=== PATIENT | female | born 1975 | race American Indian/Alaskan Native ===

== ENCOUNTER 2017-05-14 19:45 | Emergency (ER) | payer OTHER ==
[~2017-05-14] VITALS: Ht 165.1 cm; Wt 111.1 kg
[~2017-05-14 19:45] MED LIST: CRUTCH1 EACH; MINOCYCLINE HC100 M1 PO; NORCO 5-325 TA1 EACH PO; OMEPRAZOLE20 MG PO; PREDNISONE1 MG; TRIAMCINOLONE A15 GM TOP; ZANTAC150 MG PO
[2017-05-14] MEDS ORDERED: IBUPROFEN800 MG PO (20:05)
[2017-05-14] MEDS ORDERED: ACETAMINOPHEN500 MG PO (20:05)
[2017-05-14] MEDS ORDERED: NORCO 5-325 TA1 EACH PO (22:39)
== END 2017-05-14 22:45 | disposition home or self-care (01) ==
LOC: ED 19:45
DX: N64.4 Mastodynia (principal); Z98.51 Tubal ligation status; Z88.0 Allergy status to penicillin; Z88.6 Allergy status to analgesic agent; Z88.1 Allergy status to other antibiotic agents; Z88.8 Allergy status to other drugs, medicaments and biological substances
CPT/HCPCS: 99283

== ENCOUNTER 2020-01-14 13:23 | Emergency (ER) | payer OTHER ==
[~2020-01-14] VITALS: Ht 165.1 cm; Wt 111.1 kg
--- OUTSIDE RECORDS SUMMARY | ~2020-01-14 | XMS | Encounter Summary ---
Demographics + + + | Address | [address] | | | [place] [address] | + + + | Home Phone | | + + + | Preferred Language | Unknown | + + + | Marital Status | Unknown | + + + | Zoroastrianism Affiliation | Unknown | + + + | Race | Unknown | + + + | Ethnic Group | Unknown | + + + Author + + + | Author | [facility] | | | and Pipeana | + + + | Organization | [facility] | | | and [place] | + + + | Address | Unknown | + + + | Phone | Unavailable | + + + Support + + + + + | Name | Relationship | Address | Phone | + + + + + | Rigoberto Tuttle | ECON | [address] | | | | | [place] | | | | | [address] | | + + + + + Care Team Providers + +------+ + | Care [facility] Agent Name | Role | Phone | + +------+ + | Cristopher Jerez PA-C | PCP | | + +------+ + Encounter Details +--------+ + + + + | Date | Type | Department | Care Team | Description | +--------+ + + + + | 05/17/ | Hospital | [facility] | Conversion | Mass of left breast | | 2017 | Encounter | IMAGING SERVICES | Transaction, | | | | | [address] | Provider Unknown | | | | | [address] [place], [place] | | | | | | [address] | (Fax) | | | | | [phone] | | | +--------+ + + + + Social History + +-------+ +--------+------+ | Tobacco Use | Types | Packs/Day | Years | Date | | | | | Used | | + +-------+ +--------+------+ | Never Assessed | | | | | + +-------+ +--------+------+ + + + | Sex Assigned at | Date Recorded | | | | + + + | Not on file | | + + + + + + + | Job Start Date | Occupation | Industry | + + + + | Not on file | Not on file | Not on file | + + + + + + + + | Travel History | Travel Start | Travel End | + + + + + + | No recent travel history available. | + + documented as of this encounter Plan of Treatment Not on filedocumented as of this encounter Procedures + +--------+ + + + | Procedure Name | Priori | Date/Time | Associated Diagnosis | Comments | | | ty | | | | + +--------+ + + + | US BREAST LIMITED | Routin | 05/17/2017 | | Results for this | | LEFT | e | 3:50 PM | | procedure are in the | | | | PDT | | results section. | + +--------+ + + + documented in this encounter Results US Breast Limited Left (05/17/2017 3:50 PM PDT) + + | Specimen | + + | | + + + + + | Impressions | Performed At | + + + | 1. Nonvisualization of the retroareolar mass of the left breast, | | | as described above. Ultrasound-guided biopsy was not performed. | | | Six-month follow-up ultrasound would be recommended. BI-RADS 3, | | | probably benign findings. | | + + + + + + | Narrative | Performed At | + + + | [facility] MAMMO US GUIDED BREAST BIOPSY HISTORY: | | | Subareolar breast mass. TECHNIQUE: Limited sonographic evaluation | | | of the left breast. COMPARISON: Outside breast ultrasound dated | | | 04/10/2017 and breast MRI dated 04/20/2017 FINDINGS: The subareolar | | | mass within the left breast is not definitely visualized on the | | | current examination. The patient states of having a injury/laceration | | | to the left nipple in March. This may account for the patient's | | | abnormal ultrasound and breast MRI. Ultrasound-guided biopsy was not | | | performed. Six-month follow-up ultrasound would be recommended. | | + + + + + | Procedure Note | + + | Odell, Rad Conversion - 03/27/2019 10:04 AM PDT [facility]ERNSTE[facility] US GUIDED BREAST | | BIOPSY HISTORY:Subareolar breast mass. TECHNIQUE:Limited sonographic evaluation of the | | left breast. COMPARISON:Outside breast ultrasound dated 04/10/2017 and breast MRI dated | | 04/20/2017 FINDINGS:The subareolar mass within the left breast is not definitely | | visualized on the current examination. The patient states of having a injury/laceration | | to the left nipple in March. This may account for the patient's abnormal ultrasound and | | breast MRI. Ultrasound-guided biopsy was not performed. Six-month follow-up ultrasound | | would be recommended. IMPRESSION: 1. Nonvisualization of the retroareolar mass of the | | left breast, as described above. Ultrasound-guided biopsy was not performed. Six-month | | follow-up ultrasound would be recommended. BI-RADS 3, probably benign findings. | | | | | |FINDINGS: | |The subareolar mass within the left breast is not definitely visualized on the current exam ination. The patient states of having a injury/laceration to the left nipple in March. This may account for the patient's abnormal ultrasound and breast MRI. | |Ultrasound-guided biopsy was not performed. Six-month follow-up ultrasound would be recomme nded. | | | |IMPRESSION: | |1. Nonvisualization of the retroareolar mass of the left breast, as described above. Ultra sound-guided biopsy was not performed. Six-month follow-up ultrasound would be recommended. | | | |BI-RADS 3, probably benign findings. | | | | | + + documented in this encounter Visit Diagnoses + + | Diagnosis | + + | Mass of left breast Lump or mass in breast | + + documented in this encounter"
--- OUTSIDE RECORDS SUMMARY | ~2020-01-14 | XMS | Clinical Summary ---
Demographics + + + | Address | [address] | | | [place] [address] | + + + | Home Phone | | + + + | Preferred Language | Unknown | + + + | Marital Status | | + + + | Zoroastrianism Affiliation | Unknown | + + + | Race | Unknown | + + + | Ethnic Group | Unknown | + + + Author + + + | Author | [facility] (Historical as of | | | 03-29-19) | + + + | Organization | [facility] (Historical as of | | | 03-29-19) | + + + | Address | Unknown | + + + | Phone | Unavailable | + + + Support + + + + + | Name | Relationship | Address | Phone | + + + + + | RobbieShalini | ECON | Unknown | | + + + + + | NayValentina | ECON | [address] | | | | | [place] | | | | | [address] | | + + + + + Care Team Providers + +------+ + | Care Setter Off Name | Role | Phone | + +------+ + | Radha Esquivel PA-C | PP | | + +------+ + Allergies + + + + + + | Active Allergy | Reactions | Severity | Noted | Comments | | | | | Date | | + + + + + + | Amoxicillin | Hives, Swelling | High | 10/02/20 | | | | | | 17 | | + + + + + + | Aspirin | Hives, Swelling | High | 10/02/20 | | | | | | 17 | | + + + + + + | Metronidazole | Hives, Swelling | High | 10/02/20 | | | | | | 17 | | + + + + + + | Penicillins | Hives, Swelling | High | 10/02/20 | | | | | | 17 | | + + + + + + Current Medications Not on file Active Problems Not on file Social History + +-------+ +--------+------+ | Tobacco [...] on file | | + + + Last Filed Vital Signs + + + + | Vital Sign | Reading | Time Taken | + + + + | Blood Pressure | - | - | + + + + | Pulse | - | - | + + + + | Temperature | - | - | + + + + | Respiratory Rate | - | - | + + + + | Oxygen Saturation | - | - | + + + + | Inhaled Oxygen | - | - | | Concentration | | | + + + + | Weight | 111.1 kg (245 lb) | 05/14/2017 2:04 PM PDT | + + + + | Height | 165.1 cm (5' 5") | 05/14/2017 2:04 PM PDT | + + + + | Body Mass Index | 40.77 | 05/14/2017 2:04 PM PDT | + + + + Plan of Treatment Not on file Results Not on filefrom Last 3 Months Insurance + +--------+ +------+-------+ + | Payer | Benefi | Subscriber | Type | Phone | Address | | | t Plan | ID | | | | | | / | | | | | | | Group | | | | | + +--------+ +------+-------+ + | MEDICAID | [employer] | [id number] | | | [address] | | | [place] | | | | [place] | | | [place] | | | | [address] | | | [employer] | | | | | + +--------+ +------+-------+ + + +--------+ +--------+ + + | Guarantor Name | Accoun | Relation to | Date | Phone | Billing Address | | | t Type | Patient | of | | | | | | | | | | + +--------+ +--------+ + + | LUANNE TUTTLE | Person | Self [birth year] Home: | [address] | | | al/Fam | | 1976 | [phone] [place] | | | [place] | | | [phone] | [phone] | + +--------+ +--------+ + +
--- OUTSIDE RECORDS SUMMARY | ~2020-01-14 | XMS | Encounter Summary ---
Demographics + + + | Address | [address] | | | [place] [address] | + + + | Home Phone | | + + + | Preferred Language | Unknown | + + + | Marital Status | Unknown | + + + | Congregational Affiliation | Unknown | + + + | Race | Unknown | + + + | Ethnic Group | Unknown | + + + Author + + + | Author | [facility] | | | and [place] | + + + | Organization | [facility] | | | and [place] | + + + | Address | Unknown | + + + | Phone | Unavailable | + + + Support + + + + + | Name | Relationship | Address | Phone | + + + + + | Rigoberto Tuttle | ECON | [address] | | | | | [place] | | | | | [address] | | + + + + + Care Team Providers + +------+ + | Care Brand Director Name | Role | Phone | + +------+ + | Cristopher Jerez PA-C | PCP | | + +------+ + Encounter Details +--------+ + + + + | Date | Type | Department | Care Team | Description | +--------+ + + + + | 05/17/ | [facility] | [facility] | Conversion | Mass of right breast | | 2017 | Encounter | IMAGING SERVICES | Transaction, | | | | | [address] | Provider Unknown | | | | | [address] [place], [place] | | | | | | [address] | (Fax) | | | | | [phone] | | | +--------+ + + + [...] + + documented as of this encounter Last Filed Vital Signs + + + + + | Vital Sign | Reading | Time Taken | Comments | + + + + + | Blood Pressure | - | - | | + + + + + | Pulse | - | - | | + + + + + | Temperature | - | - | | + + + + + | Respiratory Rate | - | - | | + + + + + | Oxygen Saturation | - | - | | + + + + + | Inhaled Oxygen | - | - | | | Concentration | | | | + + + + + | Weight | 111.1 kg (245 lb) | 05/14/2017 2:05 PM | | | | | PDT | | + + + + + | Height | 165.1 cm (5' 5") | 05/14/2017 2:05 PM | | | | | PDT | | + + + + + | Body Mass Index | 40.77 | 05/14/2017 2:05 PM | | | | | PDT | | + + + + + documented in this encounter Plan of Treatment Not on filedocumented as of this encounter Procedures + +--------+ + + + | Procedure Name | Priori | Date/Time | Associated Diagnosis | Comments | | | ty | | | | + +--------+ + + + | TISSUE REQUEST FOR | Routin | 05/18/2017 | | Results for this | | PATHOLOGY (NON-ORD) | e | 12:00 AM | | procedure are in the | | | | PDT | | results section. | + +--------+ + + + | MAMMO US GUIDED | Routin | 05/17/2017 | | Results for this | | BREAST BIOPSY | e | 3:03 PM | | procedure are in the | | | | PDT | | results section. | + +--------+ + + + documented in this encounter Results Tissue Request For Pathology (05/18/2017 12:00 AM PDT) + + | Specimen | + + | | + + + + + | Narrative | Performed At | + + + | SPECIMEN(S): A Rt. BREAST CORE Bx. MASS AT 10:00 SPECIMEN | EXTERNAL LAB | | SOURCE: A. Rt. BREAST CORE Bx. MASS AT 10:00 CLINICAL HISTORY: | | | 05/17/2017. Small breast masses. ?Fat necrosis. 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 ([facility]) GROSS DESCRIPTION: One specimen is | | | received in one container, labeled with the patient's name: A. | | | Received in formalin designated "right breast core biopsy with mass | | | 10:00 4 cm from nipple ", consists of 8 yellow-white needle core | | | tissue fragments that range in length from 0.2 cm up to 1.7 cm and | | | have an average diameter of and 0.3 cm. The specimen is entirely | | | submitted in cassette A1. Approximate formalin time: 77 hours and 25 | | | minutes. FM The gross description section of this report has been | | | prepared using a voice recognition system. The report was reviewed | | | for accuracy, however, sound-alike word errors, addition and/or | | | deletions may occur. If there is any question about this report | | | please contact the originating pathologist. MICROSCOPIC EXAMINATION: | | | Histologic sections of all submitted blocks are examined by light | | | microscopy. These findings, together with the gross examination, | | | support the pathologic diagnosis. PERFORMING LABORATORY: | | | Professional interpretation and technical preparation was performed by | | | [place], [facility], [address] [place] [address]., | | | [place] [address] (Quebracho Tanner: Emmanuel Hogan M.D.; | | | JOANNA#: [id number]). Diagnostician: Emmanuel Hogan MD Pathologist | | | Electronically Signed 05/21/2017 | | + + + + +---------+ + + | Performing | Address | City/State/Zipcode | Phone Number | | Organization | | | | + +---------+ + + | EXTERNAL LAB | | | | + +---------+ + + [facility] Ultrasound Guided Breast Biopsy (05/17/2017 3:03 PM PDT) + + | Specimen | + + | | + + + + | Addenda | + + | Addendum by Edgardo Tate MD on 06/01/2017 12:17 PM Pathology results reveal | | capillary hemangioma. Findings are benign and concordant with the imaging findings. | | Recommend six month follow up ultrasound. | + + + + + | Impressions | Performed At | + + + | Successful ultrasound-guided right breast core needle biopsy | | | completed. | | | 4:13 PM | | + + + + + + | Narrative | Performed At | + + + | [facility] 1975 MAMMO US GUIDED BREAST BIOPSY, MAMMO | | | POST PROCEDURE INDICATION: Right breast mass. PROCEDURE: | | | The procedure was explained to the patient including benefits and | | | alternatives. The risks, including but not limited to infection and | | | bleeding, were reviewed and the patient agreed to undergo the | | | procedure, signing a consent form. The appropriate side and site | | | was labeled and initialed as an independent process prior to the | | | imaging and intervention, as per protocol at this institution. A | | | timeout was performed. The patient's right breast was imaged and | | | images of the mass at 10 o'clock 4 cm FN were obtained. The breast was | | | prepped and draped in usual sterile fashion. The area was | | | anesthetized with a local anesthetic. A core needle biopsy was placed | | | in the target using a lateral approach. 4 specimens were obtained. A | | | micromarker clip was placed at the site of core biopsy. The patient | | | experienced no complications during the procedure. Post-procedural | | | unilateral CC and MLO digital mammogram obtained to confirm clip | | | location demonstrates the clip is at the expected site of biopsy. | | | At this time, pathology is pending. The report will be addended when | | | the final pathology report of the biopsy specimen is received. | | + + + + + | Procedure Note | + + | Al Bain [facility]/27/2019 10:04 [facility] | GUIDED BREAST BIOPSY, MAMMO POST PROCEDURE INDICATION: Right breast mass. PROCEDURE: The | | procedure was explained to the patient including benefits and alternatives. The risks, | | including but not limited to infection and bleeding, were reviewed and the patient | | agreed to undergo the procedure, signing a consent form. The appropriate side and site | | was labeled and initialed as an independent process prior to the imaging and | | intervention, as per protocol at this institution. A timeout was performed. The | | patient's right breast was imaged and images of the mass at 10 o'clock 4 cm FN were | | obtained. The breast was prepped and draped in usual sterile fashion. The area was | | anesthetized with a local anesthetic. A core needle biopsy was placed in the target | | using a lateral approach. 4 specimens were obtained. A micromarker clip was placed at | | the site of core biopsy. The patient experienced no complications during the procedure. | | Post-procedural unilateral CC and MLO digital mammogram obtained to confirm clip | | location demonstrates the clip is at the expected site of biopsy. At this time, | | pathology is pending. The report will be addended when the final pathology report of the | | biopsy specimen is received. IMPRESSION: Successful ultrasound-guided right breast | | core needle biopsy completed. | | 4:13 PM | |At this time, pathology is pending. The report will be addended when the final pathology re port of the biopsy specimen is received. | | | |IMPRESSION: | | | |Successful ultrasound-guided right breast core needle biopsy completed. | | | | | + + documented in this encounter Visit Diagnoses + + | Diagnosis | + + | Mass of right breast Lump or mass in breast | + + documented in this encounter
--- OUTSIDE RECORDS SUMMARY | ~2020-01-14 | XMS | Encounter Summary ---
Demographics + + + | Address | [address] | | | [place] [address] | + + + | Home Phone | | + + + | Preferred Language | Unknown | + + + | Marital Status | Unknown | + + + | Temple Affiliation | Unknown | + + + | Race | Unknown | + + + | Ethnic Group | Unknown | + + + Author + + + | Author | [facility] | | | and [place] | + + + | Organization | [facility] | | | and [place] | + + + | Address | Unknown | + + + | Phone | Unavailable | + + + Support + + + + + | Name | Relationship | Address | Phone | + + + + + | Rigoberto Tee | ECON | [address] | | | | | [place] | | | | | [address] | | + + + + + Care Team Providers + +------+ + | Care Laser Operator Name | Role | Phone | + +------+ + | Cristopher Jerez PA-C | PCP | | + +------+ + Encounter Details +--------+ + + + + | Date | Type | Department | Care Team | Description | +--------+ + + + + | 05/09/ | Hospital | C GENERIC IP | Conversion | Pain | | 2016 | Encounter | CONVERSION [address] | Transaction, | | | | | [address] | Provider Unknown | | | | | [place], [place] | [phone] | | | | | [phone] | (Fax) | | | | | [phone] | | | +--------+ + + + [...] | + +--------+ + + + | [facility] DIGITAL | Routin | 03/12/2017 | | Results for this | | DIAGNOSTIC BILATERAL | e | 11:08 PM | | procedure are in the | | | | PDT | | results section. | + +--------+ + + + documented in this encounter Results [facility] Digital Diagnostic Bilateral (03/12/2017 11:08 PM PDT) + + | Specimen | + + | | + + + + + | Narrative | Performed At | + + + | This is a non-reportable procedure without a radiologist report and | | | is used for image storage only | | + + + + + | Procedure Note | + + | Al Bain - 03/27/2019 10:04 AM PDT This is a non-reportable procedure | | without a radiologist report and isused for image storage only | + + documented in this encounter Visit Diagnoses + + | Diagnosis | + + | Pain Generalized pain | + + documented in this encounter"
--- OUTSIDE RECORDS SUMMARY | ~2020-01-14 | XMS | Encounter Summary ---
Demographics + + + | Address | [address] | | | [place] [address] | + + + | Home Phone | | + + + | Preferred Language | Unknown | + + + | Marital Status | Unknown | + + + | Mandaeism Affiliation | Unknown | + + + | Race | Unknown | + + + | Ethnic Group | Unknown | + + + Author + + + | Author | [facility] | | | and Pipeana | + + + | Organization | [facility] | | | and [...] | [place] | | | | | [address] | | + + + + + Care Team Providers + +------+ + | Care Grill Associate Name | Role | Phone | + +------+ + | Cristopher Jerez PA-C | PCP | | + +------+ + Encounter Details +--------+ + + + + | Date | Type | Department | Care Team | Description | +--------+ + + + + | 05/17/ | Hospital | [facility] | Conversion | Mass of left breast | | 2017 | Encounter | IMAGING SERVICES | Transaction, | | | | | [address] | Provider Unknown | | | | | [address] [place], [place] | | | | | | [address] | (Fax) | | | | | [phone] | | | +--------+ + + + [...] Not on filedocumented as of this encounter Visit Diagnoses + + | Diagnosis | + + | Mass of left breast Lump or mass in breast | + + documented in this encounter"
--- OUTSIDE RECORDS SUMMARY | ~2020-01-14 | XMS | Encounter Summary ---
Demographics + + + | Address | [address] | | | [place] [address] | + + + | Home Phone | | + + + | Preferred Language | Unknown | + + + | Marital Status | Unknown | + + + | Tenriism Affiliation | Unknown | + + + | Race | Unknown | + + + | Ethnic Group | Unknown | + + + Author + + + | Author | [facility] | | | and [place] | + + + | Organization | [facility] | | | and [...] [place] | | | | | [address] | | + + + + + Care Team Providers + +------+ + | Care Still Operator Whiskey Name | Role | Phone | + [...] Provider Unknown | | | | | [place], [place] | [phone] | | | | | [phone] | (Fax) | | | | | [phone] | | | +--------+ + + + [...] | + +--------+ + + + | MRI BREAST BILATERAL | Routin | 04/20/2017 | | Results for this | | W WO CONTRAST | e | 11:11 PM | | procedure are in the | | | | PDT | | results section. | + +--------+ + + + documented in this encounter Results MRI Breast Bilateral w wo Contrast (04/20/2017 11:11 PM PDT) + + | Specimen | [...]
--- OUTSIDE RECORDS SUMMARY | ~2020-01-14 | XMS | Encounter Summary ---
Demographics + + + | Address | [address] | | | [place] [address] | + + + | Home Phone | | + + + | Preferred Language | Unknown | + + + | Marital Status | Unknown | + + + | Methodist Affiliation | Unknown | + + + | Race | Unknown | + + + | Ethnic Group | Unknown | + + + Author + + + | Author | [facility] | | | and [place] | + + + | Organization | [facility] | | | and Pipeana [...] [place] | | | | | [address] | | + + + + + Care Team Providers + +------+ + | Care Radio Director Name | Role | Phone | + +------+ + | Cristopher Jerez PA-C | PCP | | + +------+ + Encounter Details +--------+ + + + + | Date | Type | Department | Care Team | Description | +--------+ + + + + | 05/17/ | [facility] | [facility] | Conversion | Mass of right breast | | 2017 | Encounter | IMAGING SERVICES | Transaction, | | | | | [address] | Provider Unknown | | | | | [address] [place], [place] | | | | | | [address] | (Fax) | | | | | [phone] | | | +--------+ + + + [...] As part | | | of the Lead Technical Architect Program, this case was reviewed by another | | | member of [employer] [facility]. ([facility]) GROSS DESCRIPTION: One specimen is [...] preparation was performed by | | | [place], [facility], [address] [place] [address]., | | | [place] [address] (Lens Grinder Rough: Emmanuel Hogan M.D.; | | | JOANNA#: [id number]). Diagnostician: Emmanuel Hogan MD Pathologist | | [...] Al Bain - 03/27/2019 10:04 AM [facility] | | GUIDED BREAST BIOPSY, [...]
--- OUTSIDE RECORDS SUMMARY | ~2020-01-14 | XMS | Encounter Summary ---
Demographics + + + | Address | [address] | | | [place] [address] | + + + | Home Phone | | + + + | Preferred Language | Unknown | + + + | Marital Status | Unknown | + + + | Nondenominational Affiliation | Unknown | + + + | Race | Unknown | + + + | Ethnic Group | Unknown | + + + Author + + + | Author | [facility] | | | and Pipeana | + + + | Organization | [facility] | | | and [place] | [...] | [place] | | | | | [address] | | + + + + + Care Team Providers + +------+ + | Care Senior Technical Analyst Name | Role | Phone | + +------+ + | Cristopher Jerez PA-C | PCP | | + +------+ + Encounter Details +--------+ + + + + | Date | Type | Department | Care Team | Description | +--------+ + + + + | 05/17/ | Hospital | [facility] | Conversion | Mass of left breast | | 2017 | Encounter | IMAGING SERVICES | Transaction, | | | | | [address] | Provider Unknown | | | | | [address] [place], [place] | | | | | | [address] | (Fax) | | | | | [phone] | | | +--------+ + + + [...]
--- OUTSIDE RECORDS SUMMARY | ~2020-01-14 | XMS | Clinical Summary ---
Demographics + + + | Address | [address] | | | [place] [address] | + + + | Home Phone | | + + + | Preferred Language | Unknown | + + + | Marital Status | | + + + | Samaritan Affiliation | Unknown | + + + | Race | Unknown | + + + | Ethnic Group | Unknown | + + + Author + + + | Author | [facility] (Historical as of | | | 03-29-19) | + + + | Organization | [facility] (Historical as of | | | 03-29-19) [...] + + | N[address] | ECON | [address] | | | | | [place] | | | | | [address] | | + + + + + Care Team Providers + +------+ + | Care Supervisor Sign Shop Name | Role | Phone | + [...] +------+-------+ + | MEDICAID | EASTER | [id number] | | | [address] | | | N | | | | [place] | | | [place] | | | | [address] | | | YARD ASSISTANT | | | | | + +--------+ [...] Self | [birth year] | Home: | [address] [facility] | | | al/Fam | | 1976 | [phone] [place] | | | [place] | | | [phone] | [phone] | + +--------+ +--------+ + +
--- OUTSIDE RECORDS SUMMARY | ~2020-01-14 | XMS | Encounter Summary ---
Demographics + + + | Address | [address] | | | [place] [address] | + + + | Home Phone | | + + + | Preferred Language | Unknown | + + + | Marital Status | Unknown | + + + | Mandaeism Affiliation | Unknown | + + + | Race | Unknown | + + + | Ethnic Group | Unknown | + + + Author + + + | Author | [facility] | | | and Pipeana | + + + | Organization | [facility] | | | and [...] [place] | | | | | [address] | | + + + + + Care Team Providers + +------+ + | Care Document Clerk Name | Role | Phone | + +------+ + | Cristopher Jerez PA-C | PCP | | + +------+ + Encounter Details +--------+ + + + + | Date | Type | Department | Care Team | Description | +--------+ + + + + | 05/11/ | Hospital | [facility] | Conversion | Abnormal MRI, breast | | 2017 | Encounter | IMAGING SERVICES | Transaction, | | | | | [address] | Provider Unknown | | | | | [address] [place], [place] | [phone] | | | | | [address] | | | | | | [phone] | Radha Esquivel, | | | | | | [address] | | | | | | [address] | | | | | | [address] [place], [place] | | | | | | [address] | | | | | | [phone] | | | | | | | | +--------+ + + + [...] | US BREAST LIMITED | Routin | 05/11/2017 | | Results for this | | RIGHT | e | 11:37 AM | | procedure are in the | | | | PDT | | results section. | + +--------+ + + + documented in this encounter Results US Breast Limited Right (05/11/2017 11:37 AM PDT) + + | Specimen | + + | | + + + + + | Impressions | Performed At | + + + | 1. Multiple subcentimeter masses within the right breast that are | | | felt to correspond with the small enhancing masses on the recent MRI. | | | Ultrasound-guided biopsy of the head largest mass at the 10 o'clock | | | position of the right breast 4 cm from the nipple would be | | | recommended. This could be done at the time of the ultrasound guided | | | biopsy of the mass within the anterior left breast. BI-RADS 4, | | | suspicious abnormality. | | + + + + + + | Narrative | Performed At | + + + | [facility]ANNE TUTTLE [facility] US BREAST LIMITED RIGHT HISTORY: | | | Multiple superficial masses within the right breast on the recent | | | breast MRI TECHNIQUE: Sonographic evaluation of the right breast | | | at. COMPARISON: Breast MRI dated 04/20/2017 FINDINGS: Multiple | | | small subcentimeter masses just beneath the skin surface within the | | | upper aspect of the right breast. 10 o'clock position of the right | | | breast 4 cm from the nipple measuring 8 x 9 x 4 mm . The 10 | | | o'clock position of the right breast 9 cm from the nipple measuring 9 | | | x 8 x 3 mm. 1 o'clock position of the right breast 9 cm from the | | | nipple measuring 8 x 6 x 3 mm. 3 o'clock position of the right | | | breast 7 cm from the nipple measuring 6 x 6 x 2 mm. | | + + + + + | Procedure Note | + + | Odell, Rad Conversion - 03/27/2019 10:04 AM PDT [facility]ERNSTE[facility] US BREAST LIMITED | | RIGHT HISTORY:Multiple superficial masses within the right breast on the recent breast | | MRI TECHNIQUE:Sonographic evaluation of the right breast at. COMPARISON:Breast MRI dated | | 04/20/2017 FINDINGS:Multiple small subcentimeter masses just beneath the skin surface | | within the upper aspect of the right breast. 10 o'clock position of the right breast 4 | | cm from the nipple measuring 8 x 9 x 4 mm . The 10 o'clock position of the right breast | | 9 cm from the nipple measuring 9 x 8 x 3 mm. 1 o'clock position of the right breast 9 cm | | from the nipple measuring 8 x 6 x 3 mm. 3 o'clock position of the right breast 7 cm | | from the nipple measuring 6 x 6 x 2 mm. IMPRESSION: 1. Multiple subcentimeter masses | | within the right breast that are felt to correspond with the small enhancing masses on | | the recent MRI. Ultrasound-guided biopsy of the head largest mass at the 10 o'clock | | position of the right breast 4 cm from the nipple would be recommended. This could be | | done at the time of the ultrasound guided biopsy of the mass within the anterior left | | breast. BI-RADS 4, suspicious abnormality. Electronically signed by Roney Herrera DO on | | 05/11/2017 1:14 PM | |10 o'clock position of the right breast 4 cm from the nipple measuring 8 x 9 x 4 mm . | | | |The 10 o'clock position of the right breast 9 cm from the nipple measuring 9 x 8 x 3 mm. | | | |1 o'clock position of the right breast 9 cm from the nipple measuring 8 x 6 x 3 mm. | | | |3 o'clock position of the right breast 7 cm from the nipple measuring 6 x 6 x 2 mm. | | | |IMPRESSION: | |1. Multiple subcentimeter masses within the right breast that are felt to correspond with the small enhancing masses on the recent MRI. Ultrasound-guided biopsy of the head largest m ass at the 10 o'clock | |position of the right breast 4 cm from the nipple | | would be recommended. This could be done at the time of the ultrasound guided biopsy of th e mass within the anterior left breast. | | | |BI-RADS 4, suspicious abnormality. | | | | | + + documented in this encounter Visit Diagnoses + + | Diagnosis | + + | Abnormal MRI, breast Other (abnormal) findings on radiological examination of breast | + + documented in this encounter"
--- OUTSIDE RECORDS SUMMARY | ~2020-01-14 | XMS | Encounter Summary ---
Demographics + + + | Address | [address] | | | [place] [address] | + + + | Home Phone | | + + + | Preferred Language | Unknown | + + + | Marital Status | Unknown | + + + | Zoroastrian Affiliation | Unknown | + + + | Race | Unknown | + + + | Ethnic Group | Unknown | + + + Author + + + | Author | [facility] | | | and Pipeana | + + + | Organization | [facility] | | | and Pipeana | + + + | Address | Unknown | + + + | Phone | Unavailable | + + + Support + + + + + | Name | Relationship | Address | Phone | + + + + + | Rigoberto Tee | ECON | [address] | | | | | [place] | | | | | [address] | | + + + + + Care Team Providers + +------+ + | Care Drawstring Knotter Name | Role | Phone | + +------+ + | Cristopher Jerez PA-C | PCP | | + +------+ + Encounter Details +--------+ + + + + | Date | Type | Department | Care Team | Description | +--------+ + + + + | 05/17/ | Hospital | [facility] | Conversion | Mass of left breast | | 2017 | Encounter | IMAGING SERVICES | Transaction, | | | | | [address] | Provider Unknown | | | | | [address] [place], [place] | | | | | | [address] | (Fax) | | | | | [phone] | | | +--------+ + + + [...]
--- OUTSIDE RECORDS SUMMARY | ~2020-01-14 | XMS | Clinical Summary ---
Demographics + + + | Address | [address] | | | [place] [address] | + + + | Home Phone | | + + + | Preferred Language | Unknown | + + + | Marital Status | Unknown | + + + | Zoroastrianism Affiliation | Unknown | + + + | Race | Unknown | + + + | Ethnic Group | Unknown | + + + Author + + + | Author | [facility] | | | and Pipeana | + + + | Organization | [facility] | | | and Pipeana | + + + | Address | Unknown | + + + | Phone | Unavailable | + + + Support + + + + + | Name | Relationship | Address | Phone | + + + + + | Rigoberto Tee | ECON | [address] | | | | | [place] | | | | | [address] | | + + + + + Care Team Providers + +------+ + | Care Journeyman Power Plant Operator Name | Role | Phone | + +------+ + | Cristopher Jerez PA-C | PCP | | + +------+ + Allergies + + + + + + | Active Allergy | Reactions | Severity | Noted | Comments | | | | | Date | | + + + + + + | Amoxicillin | Hives, Swelling | High | 05/14/20 | | | | | | 17 | | + + + + + + | Aspirin | Hives, Swelling | High | 05/14/ | | | | | | 17 | | + + + + + + | Metronidazole | Hives, Swelling | High | 05/14/20 | | | | | | 17 | | + + + + + + | Penicillins | Hives, Swelling | High | 05/14/20 | | | | | | 17 | | + + + + + + Medications Not on file Active Problems Not [...] recent travel history available. | + + Last Filed Vital Signs + [...] | | + + + + + Plan of Treatment + + + + + | Health Maintenance | Due Date | Last Done | Comments | + + + + + | Vaccine: | | | | | Dtap/Tdap/Td (1 - | 5 | | | | Tdap) | | | | + + + + + | Cervical Cancer | | | | | Screening (Pap) | 4 | | | + + + + + | Breast Cancer | | 03/12/2017 | | | Screening | 9 | | | + + + + + | Vaccine: Influenza | | | | | (Season Ended) | 0 | | | + + + + + Results Not on filefrom Last 3 Months Insurance + +--------+ +--------+ +---------+--------+ | Payer | Benefi | Subscriber | Effect | Phone | Address | Type | | | t Plan | ID | andres | | | | | | / | | Dates | | | | | | Group | | | | | | + +--------+ +--------+ +---------+--------+ | [facility] | IHS | [id number] | 06/23/ | | | Indemn | | SERVICE | YELLOW | | 2015-P | | | ity | | | HAWK | | resent | | | | + +--------+ +--------+ +---------+--------+ | [employer] | MODA | [id number] | | [phone] | | Medica | | MEDICAID HMO | HEALTH | | [id number]-[id number] | 1 | | id | | | MDCD | | esent | | | | | | [place]MO [place] | | | | | | + +--------+ +--------+ +---------+--------+ + +--------+ +--------+ + + | Guarantor Name | Accoun | Relation to | Date | Phone | Billing Address | | | t Type | Patient | of | | | | | | | | | | + +--------+ +--------+ + + | Chloe Tee | Person | Self | [birth year] | | [address] | | | al/[employer] | | 1976 | [phone] | [place] | | | [place] | | | 2 (Home) | [phone] | + +--------+ +--------+ + + Advance Directives + + + + + | Type | Date Recorded | Patient | Explanation | | | | Crozer | | + + + + + | Power of | | | | | Proofreader | | | | + + + + + | Advance | | | | | Directive | | | | + + + + +
--- OUTSIDE RECORDS SUMMARY | ~2020-01-14 | XMS | Clinical Summary ---
Demographics + + + | Address | [address] | | | [place] [address] | + + + | Home Phone | | + + + | Preferred Language | Unknown | + + + | Marital Status | Unknown | + + + | Muslim Affiliation | Unknown | + + + | Race | Unknown | + + + | Ethnic Group | Unknown | + + + Author + + + | Author | [facility] | | | and Pipeana | + + + | Organization | [facility] | | | and Pipeana [...] [place] | | | | | [address] | | + + + + + Care Team Providers + +------+ + | Care Skinner Pelts Name | Role | Phone | + [...] | | + +--------+ +--------+ +---------+--------+ | [facility] | IHS | [id number] | 06/23/ | | | Indemn | | SERVICE | YELLOW | | 2015-P | | | ity | | | HAWK | | resent | | | | + +--------+ +--------+ +---------+--------+ | [employer] | MODA | [id number] | | [phone] | | Medica | [...] [place] | | | 2 (Home) | [address] | + +--------+ +--------+ + + Advance Directives + + + + + | Type | Date Recorded | Patient | Explanation | | | | Ribbon Blocker | | + + + + + | Power of | | | | | Emergency Medicine Physician Assistant | | | | + + + + + | Advance | | | | | Directive | | | | + + + + +
--- OUTSIDE RECORDS SUMMARY | ~2020-01-14 | XMS | Encounter Summary ---
Demographics + + + | Address | [address] | | | [place] [address] | + + + | Home Phone | | + + + | Preferred Language | Unknown | + + + | Marital Status | Unknown | + + + | Evangelical Affiliation | Unknown | + + + | Race | Unknown | + + + | Ethnic Group | Unknown | + + + Author + + + | Author | [facility] | | | and Pipeana | + + + | Organization | [facility] | | | and [...] [place] | | | | | [address] | | + + + + + Care Team Providers + +------+ + | Care Blast Furnace Helper Name | Role | Phone | + [...] Unknown | | | | | [address] [place], [place] | [phone] | | | | | [address] | | | | | | [phone] | Radha Esquivel, | | | | | | [address] | | | | | | [address] | | | | | | [address] [place], [place] | | | | | | [address] | | | | | | [phone] | | | | | | | [...]
--- OUTSIDE RECORDS SUMMARY | ~2020-01-14 | XMS | Encounter Summary ---
Demographics + + + | Address | [address] | | | [place] [address] | + + + | Home Phone | | + + + | Preferred Language | Unknown | + + + | Marital Status | Unknown | + + + | Sikhism Affiliation | Unknown | + + + | Race | Unknown | + + + | Ethnic Group | Unknown | + + + Author + + + | Author | [facility] | | | and Pipeana | + + + | Organization | [facility] | | | and [...] [place] | | | | | [address] | | + + + + + Care Team Providers + +------+ + | Care Technical Services Manager Name | Role | Phone | + [...] Provider Unknown | | | | | [place], [place] | [phone] | | | | | [phone] | (Fax) | | | | | [phone] | | | +--------+ + + + [...] | US BREAST LIMITED | Routin | 04/10/2017 | | Results for this | | LEFT | e | 11:09 PM | | procedure are in the | | | | PDT | | results section. | + +--------+ + + + documented in this encounter Results US Breast Limited Left (04/10/2017 11:09 PM PDT) + + | Specimen | [...]
--- OUTSIDE RECORDS SUMMARY | ~2020-01-14 | XMS | Encounter Summary ---
Demographics + + + | Address | [address] | | | [place] [address] | + + + | Home Phone | | + + + | Preferred Language | Unknown | + + + | Marital Status | Unknown | + + + | Alevism Affiliation | Unknown | + + + | Race | Unknown | + + + | Ethnic Group | Unknown | + + + Author + + + | Author | [facility] | | | and Pipeana | + + + | Organization | [facility] | [...] | [place] | | | | | [address] | | + + + + + Care Team Providers + +------+ + | Care Warehouse Order Selector Name | Role | Phone | + +------+ + | Cristopher Jerez PA-C | PCP | | + +------+ + Encounter Details +--------+ + + + + | Date | Type | Department | Care Team | Description | +--------+ + + + + | 05/17/ | Hospital | [facility] | Conversion | Mass of left breast | | 2017 | Encounter | IMAGING SERVICES | Transaction, | | | | | [address] | Provider Unknown | | | | | [address] [place], [place] | | | | | | [phone] | (Fax) | | | | | [phone] | | | +--------+ + + + [...]
--- OUTSIDE RECORDS SUMMARY | ~2020-01-14 | XMS | Encounter Summary ---
Demographics + + + | Address | [address] | | | [place] [address] | + + + | Home Phone | | + + + | Preferred Language | Unknown | + + + | Marital Status | Unknown | + + + | Samaritan Affiliation | Unknown | + + + | Race | Unknown | + + + | Ethnic Group | Unknown | + + + Author + + + | Author | [facility] | | | and Pipeana | + + + | Organization | [facility] | | | and Pipeana | [...] [place] | | | | | [address] | | + + + + + Care Team Providers + +------+ + | Care Rail Car Loader Name | Role | Phone | + [...] Provider Unknown | | | | | [place], [place] | [phone] | | | | | [phone] | (Fax) | | | | | [phone] | | | +--------+ + + + [...]
--- OUTSIDE RECORDS SUMMARY | ~2020-01-14 | XMS | Encounter Summary ---
Demographics + + + | Address | [address] | | | [place] [address] | + + + | Home Phone | | + + + | Preferred Language | Unknown | + + + | Marital Status | Unknown | + + + | Nondenominational Affiliation | Unknown | + + + | Race | Unknown | + + + | Ethnic Group | Unknown | + + + Author + + + | Author | [facility] | | | and Pipeana | + + + | Organization | [facility] | | | and Pipeana | [...] | [place] | | | | | [address] | | + + + + + Care Team Providers + +------+ + | Care Department Helper Name | Role | Phone | + +------+ + | Cristopher Jerez PA-C | PCP | | + +------+ + Encounter Details +--------+ + + + + | Date | Type | Department | Care Team | Description | +--------+ + + + + | 05/17/ | Hospital | [facility] | Conversion | Mass of left breast | | 2017 | Encounter | IMAGING SERVICES | Transaction, | | | | | [address] | Provider Unknown | | | | | [address] [place], [place] | | | | | | [address] | (Fax) | | | | | [phone] | | | +--------+ + + + [...]
--- OUTSIDE RECORDS SUMMARY | ~2020-01-14 | XMS | Encounter Summary ---
Demographics + + + | Address | [address] | | | [place] [address] | + + + | Home Phone | | + + + | Preferred Language | Unknown | + + + | Marital Status | Unknown | + + + | Lutheran Affiliation | Unknown | + + + | Race | Unknown | + + + | Ethnic Group | Unknown | + + + Author + + + | Author | [facility] | | | and Pipeana | + + + | Organization | [facility] | | | and Pipeana [...] | [place] | | | | | [address] | | + + + + + Care Team Providers + +------+ + | Care Dinking Machine Operator Name | Role | Phone | + +------+ + | Cristopher Jerez PA-C | PCP | | + +------+ + Encounter Details +--------+ + + + + | Date | Type | Department | Care Team | Description | +--------+ + + + + | 05/17/ | Hospital | [facility] | Conversion | Abnormal findings on | | 2017 | Encounter | IMAGING SERVICES | Transaction, | diagnostic imaging | | | | [address] | Provider Unknown | of breast | | | | [address] [place], [place] | [phone] | | | | | [address] | (Fax) | | | | | [phone] | | | +--------+ + + + [...] + +--------+ + + + | LALITA UNLISTED | Routin | 05/17/2017 | | Results for this | | PROCEDURE | e | 3:17 PM | | procedure are in the | | | | PDT | | results section. | + +--------+ + + + documented in this encounter Results LALITA Unlisted Procedure (05/17/2017 3:17 PM PDT) + + | Specimen | [...] + + | Odell, Rad Conversion - 08/04/2019 9:15 AM [facility] [place] | | GUIDED BREAST BIOPSY, [...] | Diagnosis | + + | Abnormal findings on diagnostic imaging of breast Other (abnormal) findings on | | radiological examination of breast | + + documented in this encounter"
--- OUTSIDE RECORDS SUMMARY | ~2020-01-14 | XMS | Encounter Summary ---
Demographics + + + | Address | [address] | | | [place] [address] | + + + | Home Phone [...] | Author | [facility] | | | and Pipeana | + + + | Organization | [facility] | | | and Pipeana | [...] [place] | | | | | [address] | | + + + + + Care Team Providers + +------+ + | Care Biology Internship Name | Role | Phone | + [...] Provider Unknown | | | | | [place], [place] | [phone] | | | | | [phone] | (Fax) | | | | | [phone] | | | +--------+ + + + [...]
--- OUTSIDE RECORDS SUMMARY | ~2020-01-14 | XMS | Encounter Summary ---
Demographics + + + | Address | [address] | | | [place] [address] | + + + | Home Phone | | + + + | Preferred Language | Unknown | + + + | Marital Status | Unknown | + + + | Congregational Affiliation | Unknown | + + + | Race | Unknown | + + + | Ethnic Group | Unknown | + + + Author + + + | Author | [facility] | | | and Pipeana | + + + | Organization | [facility] | | | and Pipeana [...] [place] | | | | | [address] | | + + + + + Care Team Providers + +------+ + | Care Gin Pole Operator Name | Role | Phone | [...] Provider Unknown | | | | | [place], [place] | [phone] | | | | | [address] | (Fax) | | | | | [phone] | | | +--------+ + + + [...]
--- OUTSIDE RECORDS SUMMARY | ~2020-01-14 | XMS | Encounter Summary ---
Demographics + + + | Address | [address] | | | [place] [address] | + + + | Home Phone | | + + + | Preferred Language | Unknown | + + + | Marital Status | Unknown | + + + | Moravian Affiliation | Unknown | + + + | Race | Unknown | + + + | Ethnic Group | Unknown | + + + Author + + + | Author | [facility] | | | and Pipeana | + + + | Organization | [facility] | | | and Pipeana [...] | [place] | | | | | [address] | | + + + + + Care Team Providers + +------+ + | Care Cylinder Inspector Name | Role | Phone | + +------+ + | Cristopher Jerez PA-C | PCP | | + +------+ + Encounter Details +--------+ + + + + | Date | Type | Department | Care Team | Description | +--------+ + + + + | 05/17/ | Hospital | [facility] | Conversion | Abnormal findings on | | 2017 | Encounter | IMAGING SERVICES | Transaction, | diagnostic imaging | | | | [address] | Provider Unknown | of breast | | | | [address] [place], [place] | [phone] | | | | | [phone] | (Fax) | | | | | [phone] | | | +--------+ + + + [...] Rad Conversion - 08/04/2019 9:15 AM [facility] [place] | | GUIDED BREAST BIOPSY, MAMMO [...]
[~2020-01-14 13:23] MED LIST changes: +ACETAMINOPHEN500 MG PO; +IBUPROFEN800 MG PO
[2020-01-14] MEDS ORDERED: NORCO 7.5-3251 EACH PO (15:11)
== END 2020-01-14 15:23 | disposition home or self-care (01) ==
LOC: ED 13:23
DX: R25.2 Cramp and spasm (principal); Z88.0 Allergy status to penicillin; Z91.02 Food additives allergy status; Z88.8 Allergy status to other drugs, medicaments and biological substances; Z88.6 Allergy status to analgesic agent
CPT/HCPCS: 93971; 96372; 99283-25; A9270; J1885

== ENCOUNTER 2021-02-18 16:48 | Emergency (ER) | payer OTHER ==
[~2021-02-18] VITALS: Ht 165.1 cm; Wt 111.6 kg
[~2021-02-18 16:48] MED LIST changes: +NORCO 7.5-3251 EACH PO
[2021-02-18] MEDS ORDERED: ZOFRAN4 MG PO (18:47)
[2021-02-18] MEDS ORDERED: HYDROCODON-ACE1 EA10 PO (18:47)
== END 2021-02-18 19:50 | disposition home or self-care (01) ==
LOC: ED 16:48
DX: R10.32 Left lower quadrant pain (principal); F17.200 Nicotine dependence, unspecified, uncomplicated; Z88.0 Allergy status to penicillin; Z88.8 Allergy status to other drugs, medicaments and biological substances; Z88.6 Allergy status to analgesic agent
CPT/HCPCS: 74177; 80053; 81001; 83690; 84703; 85025; 96375; 99284-25; J1885; J2405; J7030

== ENCOUNTER 2022-01-27 09:23 | Emergency (ER) | payer OTHER ==
[~2022-01-27] VITALS: Ht 165.1 cm; Wt 108.5 kg
[~2022-01-27 09:23] MED LIST changes: +HYDROCODON-ACE1 EA10 PO; +ZOFRAN4 MG PO
[2022-01-27] MEDS ORDERED: VITAMIN D21250 MCG (09:47)
[2022-01-27] MEDS ORDERED: DICLOFENAC SOD100 G1 TOP (09:47)
[2022-01-27] MEDS ORDERED: IBUPROFEN600 MG PO (09:47)
[2022-01-27] MEDS ORDERED: CIPRO500 MG PO (10:36)
[2022-01-27] MEDS ORDERED: IBU600 MG PO (10:36)
== END 2022-01-27 10:40 | disposition home or self-care (01) ==
LOC: ED 09:23
DX: L03.032 Cellulitis of left toe (principal); F17.200 Nicotine dependence, unspecified, uncomplicated; Z88.0 Allergy status to penicillin; Z88.8 Allergy status to other drugs, medicaments and biological substances; Z88.6 Allergy status to analgesic agent; Z91.011 Allergy to milk products; Z91.012 Allergy to eggs; Z79.899 Other long term (current) drug therapy
CPT/HCPCS: 73660; 99283-25; A9270

== ENCOUNTER 2022-02-20 12:03 | Emergency (ER) | payer OTHER ==
[~2022-02-20] VITALS: Ht 165.1 cm; Wt 108.4 kg
[~2022-02-20 12:03] MED LIST changes: +CIPRO500 MG PO; +DICLOFENAC SOD100 G1 TOP; +IBU600 MG PO; +IBUPROFEN600 MG PO; +VITAMIN D21250 MCG
--- OUTSIDE RECORDS SUMMARY | 2022-02-20 12:10 | XMS ---
PreManage Notification: LUANNE TUTTLE Security Channel Marketing Coordinator Events No recent Security Events currently on file CRITERIA MET - [facility] - 2 Visits in 30 Days CARE PROVIDERS There are no care providers on record at this time. Adrian has no Care Guidelines for this patient. [facility] MO.) [facility] NOTE: Visits indicate total known visits. ED/C VISIT TRACKING (12 MO.) 02/20/2022 12:04 [facility] [place] TYPE: Emergency COMPLAINT: - L SIDE ABD PAIN, SWELLING 01/27/2022 09:[address] [facility] [place] TYPE: Emergency COMPLAINT: - L FOOT WOUND DIAGNOSES: - Cellulitis of left toe - Allergy status to penicillin - Pain in left toe(s) - Other skilled nursing (current) drug therapy - Nicotine dependence, unspecified, uncomplicated - Allergy status to other drugs, medicaments and biological substances - Allergy to eggs - Allergy to milk products - Allergy status to analgesic agent INPATIENT VISIT TRACKING (12 MO.) No inpatient visits to display in this time frame [email or web address]
== END 2022-02-20 17:24 | disposition home or self-care (01) ==
LOC: ED 12:03
DX: R10.12 Left upper quadrant pain (principal); R31.9 Hematuria, unspecified; F17.200 Nicotine dependence, unspecified, uncomplicated; Z88.1 Allergy status to other antibiotic agents; Z91.012 Allergy to eggs; Z91.011 Allergy to milk products; Z88.5 Allergy status to narcotic agent; Z88.0 Allergy status to penicillin; Z91.018 Allergy to other foods
CPT/HCPCS: 36415; 74176; 80053; 81001; 84703; 85025; 96374; 99284-25; J1885

== ENCOUNTER 2023-12-05 06:23 | Inpatient (IN) | payer BC, OTHER ==
[~2023-12-05] VITALS: Ht 165.1 cm; Wt 98.0 kg
[~2023-12-05 06:23] MED LIST changes: +CYMBALTA20 MG PO; +ERYTHROMYCIN500 MG PO; +K-TAB ER20 MEQ PO; +MAGNESIUM400 M1 PO; +VITAMIN D325 MC2 PO
[2023-12-05 06:50] LABS: BASOPHILS 1.4 % (0-2); EOSINOPHILS 3.7 % (0-6); HEMATOCRIT 36.5 % (35.0-50.0); HEMOGLOBIN 12.2 g/dL (12.0-18.0); LYMPHOCYTES 45.3 % (24-44); MCH 30.4 (27-36); MCHC 33.3 g/dl (30-36); MCV 91.4 fl (81-99); MONOCYTES 4.5 % (0-12); NEUTROPHILS 45.1 % (39-80); PLATELET COUNT 247 K/uL (140-440); RDW 14.7 (10.5-15.0)
[2023-12-05 06:58] LABS: PARTIAL THROMBOPLASTIN TIME 27.4 Sec (22.9-41.3)
[2023-12-05 06:59] LABS: INR 1.07 (0.80-1.30); PROTIME 13.2 Sec (11.2-14.2)
[2023-12-05 07:02] LABS: ALBUMIN 3.4 g/dL (3.4-5.0); ALBUMIN/GLOBULIN RATIO 0.67 (1.1-2.4); ANION GAP 17.2 (7-21); BILIRUBIN, TOTAL 0.2 ng/dL (0.2-1.0); BUN/CREATININE RATIO 22.03 (6.0-28.6); CALCIUM 8.2 mg/dL (8.5-10.1); CREATININE, SERUM 0.59 mg/dL (0.55-1.02); MAGNESIUM 2.1 mg/dL (1.8-2.4); POTASSIUM 4.2 mmol/L (3.5-5.1); PROTEIN, TOTAL 8.5 g/dL (6.4-8.2)
[2023-12-05] MEDS ORDERED: TIZANIDINE HCL4 M1 PO (07:13)
[2023-12-05] MEDS ORDERED: CLOPIDOGREL BISULFATE 75 MG TAB PO ONE (08:15)
[2023-12-05] MEDS ORDERED: ASPIRIN 81 MG CHEW PO ONE (08:15)
[2023-12-05 09:04] LABS: CHOLESTEROL/HDL RATIO 3.8; TSH, 3RD GENERATION 2.277 uIU/mL (0.358-3.740)
[2023-12-05] MEDS ORDERED: DULOXETINE HCL 30 MG CAP PO SCH ×2 (09:08→11:00)
[2023-12-05] MEDS ORDERED: MAGNESIUM OXIDE 400 MG TABLET PO SCH (09:09)
[2023-12-05] MEDS ORDERED: NICOTINE 7 MG/24 HR 1 EA TDSY TD PRN (09:15)
[2023-12-05] MEDS ORDERED: POLYETHYLENE GLYCOL 3350 1 PACKET PO PRN (09:15)
[2023-12-05] MEDS ORDERED: THIAMINE HCL 100 MG in SODIUM CHLORIDE 0.9% 100 ML IV SCH (09:19)
[2023-12-05] MEDS ORDERED: MULTIVITAMINS/MINERALS 1 EA TAB PO SCH (09:45)
[2023-12-05 09:49] VITALS: BP 134/86
[2023-12-05] MEDS ORDERED: THIAMINE HCL 100 MG,FOLIC ACID 1 MG,MULTIVITAMINS 10 ML in SODIUM CHLORIDE 0.9% 1,000 ML IV ONE (10:30)
[2023-12-05] MEDS ORDERED: CLOPIDOGREL BISULFATE 75 MG TAB PO SCH (10:30)
[2023-12-05] MEDS ORDERED: ondansetron HCL 4 MG/2 ML VIAL IV PRN (10:30)
[2023-12-05] MEDS ORDERED: ASPIRIN 81 MG CHEW PO SCH ×2 (10:30→12:19)
[2023-12-05] MEDS ORDERED: diazePAM 10 MG/2 ML SYR IV PRN (10:30)
[2023-12-05] MEDS ORDERED: PREGABALIN 75 MG CAP PO SCH (10:30)
[2023-12-05] MEDS ORDERED: KETOROLAC TROMETHAMINE 15 MG/ML VIAL IV PRN (10:30)
[2023-12-05] MEDS ORDERED: TUBERCULIN PPD 5 UNITS/0.1 ML VIAL SUB-Q SCH (10:30)
[2023-12-05] MEDS ORDERED: diazePAM 5 MG TAB PO PRN (10:30)
--- NOTE | 2023-12-05 10:37 | NUR ---
RETRIEVED PT FROM ED AND TAKEN TO ROOM. DTR IN ROOM. ADMISSION COMPLETE. PT ABLE TO BOOST SELF IN BED AND ROLL SIDE TO SIDE WHEN SHE BECAME UNCOMFORTABLE IN BED. PURE WICK IN PLACE, VERIFIED PLACEMENT. REPORT GIVEN TO SYLVIA ROCK. PT REPORTING 6\10 PAIN\NUMBNESS\TINGLING IN LEFT EXTREMETIES. SPEECH BACK TO NORMAL PER DTR. STATES SHE IS IN ETOH TREATMENT WITH [facility] OUT[facility] CURRENTLY.
[2023-12-05] MEDS ORDERED: THIAMINE HCL 100 MG TAB PO SCH (10:45)
[2023-12-05] MEDS ORDERED: LIDOCAINE HCL 4% 1 EACH PATCH TD PRN ×2 (11:00)
[2023-12-05] MEDS ORDERED: DICLOFENAC 1% TOPICAL GEL TOP PRN (11:00)
--- NOTE | 2023-12-05 11:25 | NUR ---
PT STATES THAT SHE NEEDS TO VOID, THIS RN EDUCATES PT ON PUREWICK THAT IS IN PLACE AND USE, PT STATES "I CANNOT GO WITH THAT THERE, I NEED TO GET UP AND USE THE TOILET". PT ATTEMPTS TO GET OUT OF BED, THIS RN STATES THAT PT IS NOT TO WALK AT THIS TIME D/T L SIDED DEFICITS WELL NOT YET BEING EVALUATED BY PT/OT. PT STATES "BUT I WANT TO", THIS RN EDUCATES PT AND DAUGHTER ON FALL/INJURY RISKS, STATES THAT PT IS NOT TO GET OUT OF BED AT THIS TIME, EDUCATION WITH PT ABOUT USING CALL LIGHT IF SHE BELIEVES SHE NEEDS TO GET UP. PT AGREES AND VERBALIZES UNDERSTANDING. BED ALARM ON FOR SAFETY. PT STATES SHE WILL NOT USE PUREWICK TO VOID, ASKS TO USE BEDPAN, BEDPAN PLACED, PT VOIDS, BEDPAN REMOVED AND EMPTIED. PT STATES SHE WOULD LIKE A NEW PUREWICK PLACED, THIS RN ASKS PT IF SHE WILL USE THE PUREWICK SHE HAD STATED SHE WILL NOT VOID WITH A PUREWICK IN PLACE. PT STATES "I WANT IT JUST IN CASE I HAVE TO GO", NEW PUREWICK PLACED, SUCTION ON. PT REFUSES MULTIVITAMINS (PO AND IV), PT STATES SHE IS ALLERGIC TO THINGS IN MULTIVITAMINS, DOES NOT STATE REACTION. PT REFUSES CHEWABLE ASPIRIN D/T CITRUS FLAVORING STATING SHE IS ALLERGIC TO CITRUS, NOTIFIED, STATES TO HOLD ASPIRIN AT THIS TIME D/T POSSIBLE DVT. STATES TO DC SCDs, MAKE ECHO ORDER STAT AND TO PLACE A STAT BLE ULTRASOUND. ORDERS ENTERED, REPEAT BACK PERFORMED. TB TEST PLACED ON ANTERIOR RIGHT ARM, MARKED WITH SKIN MARKER. PT TOLERATED TB TEST WELL. PT STATES NO FURTHER NEEDS AT THIS TIME, CALL LIGHT WITHIN REACH.
[2023-12-05] MEDS ORDERED: PHARMACY RENAL DOSE ADJUSTMENT 1 DOSE MISC PO SCH (12:00)
[2023-12-05] MEDS ORDERED: HEParin SOD (PORCINE) 5,000 UNIT/ML SYR IV PRN ×3 (12:30)
[2023-12-05] MEDS ORDERED: HEPARIN SOD,PORK IN 0.45% NACL 500 ML IV SCH (12:30)
--- NOTE | 2023-12-05 12:46 | NUR ---
ECHO AT THE BEDSIDE.
--- NOTE | 2023-12-05 13:00 | NUR ---
ULTRASOUND AT BEDSIDE.
--- NOTE | 2023-12-05 13:49 | NUR ---
MRI TO BEDSIDE.
[2023-12-05] MEDS ORDERED: diazePAM 10 MG/2 ML SYR IV SCH (14:00)
[2023-12-05] MEDS ORDERED: diazePAM 5 MG TAB PO SCH (14:00)
--- NOTE | 2023-12-05 14:10 | NUR ---
CALLS THIS RN, STATES TO NOT START HEPARIN DRIP AT THIS TIME, NO NEW ORDERS.
[2023-12-05 14:12] VITALS: BP 148/97
--- NOTE | 2023-12-05 14:14 | NUR ---
PATIENT HAD ACCIDENT IN BED AT FROM [facility], FRESH LINENS GIVEN AT THIS TIME. VITALS AND I&O'S CHARTED. CALL LIGHT WITHIN REACH, NO FURHTER NEEDS AT THIS TIME.
[2023-12-05] MEDS ORDERED: CERTAVITE-ANTI1 EACH PO (14:17)
--- NOTE | 2023-12-05 14:19 | NUR ---
medications reconciled pharmacy records and [facility] records
--- NOTE | 2023-12-05 14:54 | NUR ---
PATIENT ALERT AND ORIENTED IN ROOM. VERIFIED DEMOGRAPHICS. STATES SHE LIVES IN [place]. HAS NO DME. DRIVES SELF NORMALLY. DENIES ANY DIFFICULTIES FINANCIALLY, PAYING BILLS, BUYING FOOD OR PAYING FOR MEDICATIONS. DENIES NEEDS AT THIS TIME. PLANS TO DC TO HOME.
[2023-12-05] MEDS ORDERED: ACETAMINOPHEN 325 MG TAB PO PRN (15:00)
[2023-12-05] MEDS ORDERED: methocarbamoL 500 MG TABLET PO SCH (15:00)
[2023-12-05 15:43] VITALS: BP 148/97
[2023-12-05] MEDS ORDERED: ATORVASTATIN 40 MG TAB PO SCH (17:00)
[2023-12-05 18:20] VITALS: BP 123/75
--- NOTE | 2023-12-05 18:27 | NUR ---
PATIENT IN BED AT THIS TIME. VITALS AND I&O'S CHARTED. CALL LIGHT WITHIN REACH, NO FURTHER NEEDS AT THIS TIME.
--- NOTE | 2023-12-05 19:05 | NUR ---
REPORT RECEIVED FROM SHWETA WARD. pt C/O NAUSEA. PRN ZOFRAN ADMINISTERED. pt DENIES ANY OTHER NEEDS AT THIS TIME. CALL LIGHT WITHIN REACH.
[2023-12-05 20:09] VITALS: BP 133/82
[2023-12-05] MEDS ORDERED: MELATONIN 3 MG TAB PO PRN (21:00)
--- NOTE | 2023-12-05 21:15 | NUR ---
ASSESSMENT DONE. pt RESFUSED NIGHT TIME MEDICATIONS. pt RESTING IN THE BED. pt DENIES ANY NEEDS AT THIS TIME. CALL LIGHT WITHIN REACH. LITOCAINE PATCH IN PLACE. RR EVEN AND UNLABORED.
[2023-12-06] VITALS (8 sets, daily range): BP systolic 109–138; BP diastolic 70–89
--- NOTE | 2023-12-06 00:07 | NUR ---
pt RESTING IN THE BED WITH EYES CLOSED. NO OTHER NEEDS AT THIS TIME. RR EVEN AND UNLABORED. CALL LIGHT WITHIN REACH.
--- NOTE | 2023-12-06 01:40 | NUR ---
ASSESSMENT AND VITAL SIGNS DONE. RR EVEN AND UNLABORED. pt DENIES MEDICATIONS AT THIS TIME. NO OTHER NEEDS AT THIS TIME. CALL LIGHT WITHIN REACH.
--- NOTE | 2023-12-06 04:05 | NUR ---
pt RESTING IN THE BED WITH EYES CLOSED. RR EVEN AND UNLABORED. CALL LIGHT WITHIN REACH.
[2023-12-06 05:41] LABS: BASOPHILS 1.1 % (0-2); EOSINOPHILS 4.6 % (0-6); HEMATOCRIT 32.9 % (35.0-50.0); HEMOGLOBIN 11.1 g/dL (12.0-18.0); LYMPHOCYTES 44.3 % (24-44); MCH 30.9 (27-36); MCHC 33.6 g/dl (30-36); MCV 91.9 fl (81-99); MONOCYTES 7.9 % (0-12); NEUTROPHILS 42.1 % (39-80); PLATELET COUNT 219 K/uL (140-440); RBC 3.58 M/ul (4.3-5.7); RDW 14.4 (10.5-15.0)
[2023-12-06 05:53] LABS: ANION GAP 11.9 (7-21); BUN/CREATININE RATIO 19.44 (6.0-28.6); CALCIUM 8.2 mg/dL (8.5-10.1); CREATININE, SERUM 0.72 mg/dL (0.55-1.02); MAGNESIUM 1.9 mg/dL (1.8-2.4); PHOSPHORUS, INORGANIC 4.9 mg/dL (2.5-4.9); POTASSIUM 3.9 mmol/L (3.5-5.1)
--- NOTE | 2023-12-06 06:10 | NUR ---
ASSESSMENT AND VITAL SIGNS DONE. pt UP THE BR. SBA. pt C/O 01/20 PAIN. PRN PAIN MEDICATION ADMINISTERED. pt DENIES ANY OTHER NEEDS AT THIS TIME. CALL LIGHT WITHIN REACH. WATER REFRESHED.
--- NOTE | 2023-12-06 06:57 | EKG ---
[facility] [address] [place], [place] [address] Signed Normal sinus rhythm , Q waves in avf and III, present previously Abnormal ECG When compared with ECG of 03-JUN-2023 14:34, Confirmed by Rowan Ye ([id number]) on 12/06/2023 6:57:42 AM Electronically Signed By: ROWAN YE MD 12/06/23 0657 PATIENT NAME: LUANNE TUTTLE PAUL Electrocardiogram DATE OF : 71 PHYSICIAN: ROWAN YE MD REPORT #: [id number] REPORT IS CONFIDENTIAL AND NOT TO BE RELEASED WITHOUT AUTHORIZATION
--- NOTE | 2023-12-06 07:15 | NUR ---
RECEIVED REPORT FROM SYLVIA HAMMER. PT UP TO RESTROOM, STATES NO NEEDS AT THIS TIME. CALL LIGHT WITHIN REACH, ASSUMING CARE OF PT.
[2023-12-06] MEDS ORDERED: PRAMIPEXOLE DIHYDROCHLORIDE 0.25 MG TAB PO PRN (08:00)
[2023-12-06] MEDS ORDERED: methocarbamoL 500 MG TABLET PO PRN (08:01)
[2023-12-06] MEDS ORDERED: IBUPROFEN 600 MG TAB PO PRN (08:15)
[2023-12-06] MEDS ORDERED: ENOXAPARIN SODIUM 40 MG/0.4 ML SYR SUB-Q SCH (09:00)
--- NOTE | 2023-12-06 09:14 | NUR ---
In AM meeting, Dr. Ye states patient is interested in stopping drinking. In to speak with patient regarding [employer]. Patient states she is a member of [employer] and has a sponser. [employer] card provided for crisis number at this time. Denies other needs. Plan to DC to home on Sunday.
[2023-12-06] MEDS ORDERED: ASPIRIN 81 MG TABEC PO SCH (09:30)
--- NOTE | 2023-12-06 09:37 | NUR ---
PT AWAKE IN BED, STATES PAIN IS CURRENTLY 2/10. PT A+O X3, VERBALIZES UNDERSTANDING OF POC. CIWA SCORE OF 2 AT THIS TIME FOR MILD DIAPHORESIS. MILD WEAKNESS PRESENT IN BLE, PT ABLE TO MOVE IN BED AND AROUND ROOM INDEPENDENTLY. PT STATES NO NEEDS AT THIS TIME, CALL LIGHT WITHIN REACH.
--- NOTE | 2023-12-06 10:45 | NUR ---
VISITED DURING SPIRITUAL CARE ROUNDS. PT STATED ATTEMPTING TO SLEEP. LEFT GUIDEPOST WITH CONTACT CARD AND PRAYER CARD THEN EXITED ROOM.
--- NOTE | 2023-12-06 11:25 | NUR ---
PT LYING AWAKE IN BED, STATES NO NEEDS AT THIS TIME. DENIES PAIN AT THIS TIME. CALL LIGHT WITHIN REACH.
--- NOTE | 2023-12-06 14:05 | NUR ---
IN PT ROOM FOR 1400 MEDICATION. PT REFUSED MEDICATION, STATING SHE DID NOT WANT IT AND WANTED TO BE LEFT ALONE TO SLEEP. PRIMARY RN MADE AWARE. PT RESTING IN BED, CALL LIGHT WITHIN REACH.
--- NOTE | 2023-12-06 15:30 | NUR ---
IN WITH SN HANNAH TO COMPLETE CIWA, SEE ETOH ASSESSMENT. ICE WATER PROVIDED. PT DENIES ANY OTHER NEEDS AT THIS TIME. CALL LIGHT IN REACH.
--- NOTE | 2023-12-06 15:30 | NUR ---
IN WITH SYLVIA BAILEY TO MONITOR PT CIWA. PT NOTED TO SCORE A 0 ON CIWA SCALE. PT RESTING SUPINE IN BED, RECEIEVES FRESH ICE WATER. CALL LIGHT IN REACH, NO OTHER NEEDS NOTED AT THIS TIME.
[2023-12-06 16:49] LABS: BILIRUBIN, URINE NEGATIVE (negative); BLOOD/HGB, URINE NEGATIVE (Negative); KETONE, URINE NEGATIVE (Negative); LEUK ESTERASE, URINE NEGATIVE (negative); NITRITE, URINE NEGATIVE (negative); PH, URINE 6.5 (5-7)
[2023-12-06 17:06] LABS: AMPHETAMINES, URINE NEGATIVE (NEGATIVE); BARBITURATES, URINE NEGATIVE (NEGATIVE); BENZODIAZEPINE, URINE NEGATIVE (NEGATIVE); BUPRENORPHINE, URINE NEGATIVE (NEGATIVE); CANNABINOID, URINE NEGATIVE (NEGATIVE); COCAINE, URINE NEGATIVE (NEGATIVE); ECSTASY, URINE NEGATIVE (NEGATIVE); FENTANYL, URINE NEGATIVE (NEGATIVE); METHADONE, URINE NEGATIVE (NEGATIVE); OPIATES, URINE NEGATIVE (NEGATIVE); OXYCODONE, URINE NEGATIVE (NEGATIVE); PHENCYCLIDINE, URINE NEGATIVE (NEGATIVE)
--- NOTE | 2023-12-06 18:35 | NUR ---
PT CALLED AND ASKED TO GET HER RESTROOM SET UP SO SHE CAN SHOWER, SHE WANTED HER DAUGHTERS TO HELP HER AND AUTOMATIC EMBROIDERY MACHINE TENDER CHANGED HER LINENS. PT IS AWARE TO GIVE PULL THE CALL LIGHT IF SHE NEEDS ANY HELP OR ANYTHING ELSE.
--- NOTE | 2023-12-06 19:15 | NUR ---
REPORT RECEIVED FROM SHWETA WARD. pt RESTING IN THE BED. pt STATES SHE IS FEELING BOARD AND WOULD LIKE TO DISCHARGE. THIS RN DISCUSSED THE REASON FOR WHY SHE HAS TO STAY. BOARD UPDATED. pt IS OK WITH DICUSSION. pt DENIES ANY OTHER NEEDS AT THIS TIME. CALL LIGHT WITHIN REACH.
--- NOTE | 2023-12-06 20:55 | NUR ---
pt REFUSED ALL MEDICATION. PLAN DICUSSED WHY SHE HAS TO STAY HER, pt UNDERSTOOD. ASSESSMENT AND VITAL SIGNS DONE. pt DENIES ANY OTHER NEEDS AT THIS TIME. CALL LIGHT WITHIN REACH.
--- NOTE | 2023-12-06 23:37 | NUR ---
pt RESTING IN THE BED. pt DENIES ANY NEEDS AT THIS TIME. CALL LIGHT WITHIN REACH.
[2023-12-07] VITALS (7 sets, daily range): BP systolic 124–143; BP diastolic 77–90
--- NOTE | 2023-12-07 03:16 | NUR ---
RESTING, NO S/SX DISTRESS OR ETOH WITHDRAWAL AT THIST STUART, EYES CLOSED, NO RESP DISTRESS, TURNS AND REPOSITIONS SELF IN BED
--- NOTE | 2023-12-07 04:18 | NUR ---
Pt up to BRp, voided, medium colored yellow urine. Back to bed, independent, warm blanket given on requests, fresh fluids. denies c/o pain or s/sx ETOH withdrawal. pleasant and cooperative with vitals and assessments
[2023-12-07 05:43] LABS: EOSINOPHILS 4.2 % (0-6); HEMATOCRIT 33.8 % (35.0-50.0); HEMOGLOBIN 11.1 g/dL (12.0-18.0); LYMPHOCYTES 41.1 % (24-44); MCH 30.5 (27-36); MCHC 32.9 g/dl (30-36); MCV 92.5 fl (81-99); MONOCYTES 7.1 % (0-12); NEUTROPHILS 46.6 % (39-80); PLATELET COUNT 203 K/uL (140-440); RBC 3.65 M/ul (4.3-5.7); RDW 14.6 (10.5-15.0)
[2023-12-07 05:58] LABS: ANION GAP 11.8 (7-21); BUN/CREATININE RATIO 17.56 (6.0-28.6); CALCIUM 8.1 mg/dL (8.5-10.1); CREATININE, SERUM 0.74 mg/dL (0.55-1.02); MAGNESIUM 1.8 mg/dL (1.8-2.4); PHOSPHORUS, INORGANIC 4.6 mg/dL (2.5-4.9); POTASSIUM 3.8 mmol/L (3.5-5.1)
--- NOTE | 2023-12-07 06:33 | NUR ---
Awakes easily, on room air, turns and repositions self in bed. SL patent. Declined Valium at thist maria victoria. no c/o pain. Independent in room, tolerating fluids, denies c/o CP or SOB with exertion, improved gait
--- NOTE | 2023-12-07 07:43 | NUR ---
RECIEVED SHIFT REPORT. PT IS RESTING IN BED, EYES CLOSED, BREATHING EVEN AND UNLABORED. CALL LIGHT IN REACH.
--- NOTE | 2023-12-07 08:20 | NUR ---
PT RESTING IN CHAIR IN ROOM WATCHING TV. PT HAS CALL LIGHT WITHIN REACH, DENIES NEEDS AT THIS TIME.
--- NOTE | 2023-12-07 09:00 | NUR ---
PT SITTING IN CHAIR IN ROOM WATCHING TV. PT HAS CALL LIGHT WITHIN REACH AND PT BELONGINGS AT BEDSIDE. PT MEDICATION PROVIDED, PT TAKING ONE MEDICATION AND REFUSING OTHERS SHE DOES NOT TAKE THEM AT HOME. PT DENIES FURTHER NEEDS.
--- NOTE | 2023-12-07 10:33 | NUR ---
Chart faxed to Dr. Rollins at [facility] to set up outpatient PT at discharge. Patient prefers [facility].
--- NOTE | 2023-12-07 10:45 | NUR ---
ATTEMPTED TO VISIT DURING SPIRITUAL CARE ROUNDS. PT IN CONFERENCE WITH CASE MANAGMENT. DID NOT INTERRUPT. PROVIDED PRAYER.
--- NOTE | 2023-12-07 10:51 | NUR ---
Patient sitting in recliner, TV is on but she is looking on her phone. She is alert and pleasant today. I brought her handouts on heart healthy shopping tips, heart healthy cooking tips, and strategies to build healthy meals. The heart healthy handouts were given because they take into account lower sodium foods and lower fat foods since she and her daughter want to continue losing weight but have to be careful since she just had her gallbladder out. Patient is excited about the changes they plan to make. She appreciated the handouts. My card provided as well, with my name and office # in case she has other questions.
[2023-12-07 11:33] LABS: IRON BINDING CAPACITY TOTAL 405 ug/dL (240-450); IRON,SERUM OR PLASMA 89 ug/dL (28-170); TRANSFERRIN SATURATION 22 %sat (20-50)
--- NOTE | 2023-12-07 16:56 | NUR ---
PATIENT TOOK A SHOWER LAST NIGHT AROUND 183 WHEN HER DAUGHTERS GOT HER. BUT WE DID GIVE HER THE TOWELS AND WASH CLOTHS. NEW GOWN. AND CLEAN LINENS.
--- NOTE | 2023-12-07 17:08 | NUR ---
JUST A LITTLE BEFORE LUNCH PATIENT WALKED FOUR LAPS AROUND MED SURG.
[2023-12-07 17:53] LABS: FERRITIN 85 ng/mL (13-150)
--- NOTE | 2023-12-07 19:51 | NUR ---
up to brp, independent with cares. walking in room, denies s/sx etoh withdrawal. sl LAC, patent. red facial area /rosacea /pt stated. no c/o pain, tolerating liquids well, cooperative with asssessments
--- NOTE | 2023-12-07 20:39 | NUR ---
declined valium, alert and oriented, walking in room, visiting with family, no c/o ain or s/sx etoh withdrawal. took meds well, cooperative with vitals
--- NOTE | 2023-12-07 23:12 | NUR ---
RESTING, NO DISTRESS, INDEPENDENT IN ROOM
--- NOTE | 2023-12-08 00:45 | NUR ---
Resting, eyes closed, no s/sx distress or etoh withdrawal, turns and repositions self in bed
--- NOTE | 2023-12-08 03:17 | NUR ---
Resting, eyes closed, no s/sx distress, fluids at hands reach. independent in room, voiding QS. turns and repositions self in bed
[2023-12-08 05:33] VITALS: BP 130/79
[2023-12-08] MEDS ORDERED: LYRICA75 MG PO (05:49)
[2023-12-08] MEDS ORDERED: LIDOCAINE PAIN1 EACH TD (05:49)
[2023-12-08] MEDS ORDERED: DULOXETINE HCL30 MG PO (05:49)
[2023-12-08 05:51] LABS: BASOPHILS 0.9 % (0-2); HEMATOCRIT 35.2 % (35.0-50.0); HEMOGLOBIN 11.7 g/dL (12.0-18.0); LYMPHOCYTES 38.6 % (24-44); MCH 30.7 (27-36); MCHC 33.2 g/dl (30-36); MCV 92.6 fl (81-99); MONOCYTES 7.4 % (0-12); NEUTROPHILS 49.1 % (39-80); PLATELET COUNT 212 K/uL (140-440); RBC 3.81 M/ul (4.3-5.7); RDW 14.7 (10.5-15.0)
[2023-12-08 06:07] LABS: ANION GAP 11.9 (7-21); CALCIUM 8.4 mg/dL (8.5-10.1); CREATININE, SERUM 0.8 mg/dL (0.55-1.02); MAGNESIUM 1.8 mg/dL (1.8-2.4); PHOSPHORUS, INORGANIC 4.6 mg/dL (2.5-4.9); POTASSIUM 3.9 mmol/L (3.5-5.1)
--- NOTE | 2023-12-08 06:24 | NUR ---
Awake, playing with her phone. Up to brp, voiding QS, independent. Facial redness still present. no c/o s/sx etoh withdrawal, excited about being dc'd home today
--- NOTE | 2023-12-08 07:30 | NUR ---
REPORT RECEIVED FROM SYLVIA DUBON. PT UP IN RESTROOM. PT DENIES ANY NEEDS AT THIS TIME. PT AMBULATORY. NO NEEDS IDENTIFIED.
[2023-12-08] MEDS ORDERED: DICLOFENAC SODI50 GM TOP (07:39)
[2023-12-08] MEDS ORDERED: ERYTHROMYCIN500 MG PO (07:39)
[2023-12-08 08:43] VITALS: BP 132/85
--- NOTE | 2023-12-08 09:04 | NUR ---
IN TO ADMINISTER MEDICATIONS, SEE MAR. PT TAKES PO MEDICATIONS WITH NO ISSUES. PT SITTING UP IN BED. PT A&O TO ALL. PT DENIES HEADACHE. NO TREMMORS NOTED. ASSESSMENT COMPLETE. LUNG SOUNDS CLEAR IN RUL AND JANN. BOWEL TONES ACTIVE, DENIES TENDERNESS WITH PALPATION. PT DENIES PAIN AT THIS TIME. PT DENIES NUMBNESS OR TINGLING. IV REMOVED WNL, SEE VASCULAR ACCESS. DC INSTRUCTIONS VERBAL AND WRITTEN PROVIDED. PT VERBALIZES UNDERSTANDING. QUESTIONS ANSWERED. PT REQUESTING TO SHOWER PRIOR TO LEAVING. PT SET UP FOR SHOWER. PT DENIES ANY OTHER NEEDS AT THIS TIME. CALL LIGHT IN REACH.
--- NOTE | 2023-12-08 09:25 | NUR ---
PATIENT WANTS TO TAKE A SHOWER BEFORE SHE IS DISCHARGED. SET UP SHOWER. PATIENT IS INDEPENDENT.
[2023-12-09 00:51] LABS: VITAMIN B1,PLASMA 8 nmol/L (4-15)
== END 2023-12-08 10:00 | disposition home or self-care (01) | DRG 69 ==
LOC: ED 06:23 → MS 09:01
PROVIDERS: Internal Medicine; ADMIT Family Medicine; ATTEND Family Medicine
DX: G45.9 Transient cerebral ischemic attack, unspecified (principal); R20.2 Paresthesia of skin; G89.4 Chronic pain syndrome; M79.7 Fibromyalgia; G25.81 Restless legs syndrome; F17.210 Nicotine dependence, cigarettes, uncomplicated; E66.9 Obesity, unspecified; Z68.36 Body mass index [BMI] 36.0-36.9, adult; F41.9 Anxiety disorder, unspecified; F32.A Depression, unspecified; F44.4 Conversion disorder with motor symptom or deficit; F10.20 Alcohol dependence, uncomplicated; K21.9 Gastro-esophageal reflux disease without esophagitis; Z98.890 Other specified postprocedural states; Z98.51 Tubal ligation status; Z88.0 Allergy status to penicillin; Z88.5 Allergy status to narcotic agent; Z88.1 Allergy status to other antibiotic agents; Z88.8 Allergy status to other drugs, medicaments and biological substances; Z91.012 Allergy to eggs; Z91.011 Allergy to milk products; Z79.899 Other long term (current) drug therapy
CPT/HCPCS: 36415; 70450; 70496; 70498; 70551; 71045; 71260; 80048; 80053; 80061; 80307; 81003; 82607; 82728; 83036; 83550; 83735; 84100; 84425; 84443; 85025; 85379; 85610; 85730; 92523; 93005; 93010; 93306; 93970; 94760; 97161; 97165; 97530; A9270; G0480; J1650; J2405; J3411; J7030; Q9967

== ENCOUNTER 2024-04-07 13:09 | Inpatient (IN) | payer BC, OTHER ==
[~2024-04-07] VITALS: Ht 165.1 cm; Wt 98.0 kg
[~2024-04-07 13:09] MED LIST changes: +CERTAVITE-ANTI1 EACH PO; +DICLOFENAC SODI50 GM TOP; +DULOXETINE HCL30 MG PO; +LIDOCAINE PAIN1 EACH TD; +LYRICA75 MG PO; +TIZANIDINE HCL4 M1 PO
[2024-04-07] MEDS ORDERED: methylPREDNISolone SOD SUCC 125 MG/2 ML VIAL IV ONE (14:15)
[2024-04-07] MEDS ORDERED: ALBUTEROL/IPRATROPIUM 3 ML NEB INH ONE ×2 (14:15→16:30)
[2024-04-07] MEDS ORDERED: SODIUM CHLORIDE 0.9% 500 ML IV ONE (14:15)
[2024-04-07] MEDS ORDERED: ondansetron HCL 4 MG/2 ML VIAL IV ONE (14:15)
[2024-04-07 14:48] LABS: EOSINOPHILS 0.2 % (0-6); MCHC 33.1 g/dl (30-36)
[2024-04-07 14:50] LABS: BASOPHILS 0.6 % (0-2); HEMATOCRIT 40.5 % (35.0-50.0); HEMOGLOBIN 13.4 g/dL (12.0-18.0); LYMPHOCYTES 20.4 % (24-44); MCH 30.6 (27-36); MCV 92.5 fl (81-99); MONOCYTES 7.5 % (0-12); NEUTROPHILS 71.3 % (39-80); PLATELET COUNT 171 K/uL (140-440); RBC 4.37 M/ul (4.3-5.7); RDW 14.3 (10.5-15.0)
[2024-04-07 15:03] LABS: ALBUMIN 3.7 g/dL (3.4-5.0); ALBUMIN/GLOBULIN RATIO 0.84 (1.1-2.4); ANION GAP 17.4 (7-21); BILIRUBIN, TOTAL 0.3 ng/dL (0.2-1.0); BUN/CREATININE RATIO 13.51 (6.0-28.6); CREATININE, SERUM 0.74 mg/dL (0.55-1.02); POTASSIUM 3.4 mmol/L (3.5-5.1); PROTEIN, TOTAL 8.1 g/dL (6.4-8.2)
[2024-04-07 15:09] LABS: CALCIUM 8.9 mg/dL (8.5-10.1)
[2024-04-07] MEDS ORDERED: guaiFENesin 600 MG TABCR PO PRN (19:00)
[2024-04-07] MEDS ORDERED: PROCHLORPERAZINE EDISYLATE 10 MG/2 ML VIAL IV PRN (19:00)
[2024-04-07] MEDS ORDERED: ACETAMINOPHEN 325 MG TAB PO PRN (19:00)
[2024-04-07] MEDS ORDERED: BENZONATATE 100 MG CAP PO PRN (19:00)
[2024-04-07] MEDS ORDERED: SODIUM CHLORIDE 0.9% 1,000 ML IV SCH (19:00)
[2024-04-07] MEDS ORDERED: ondansetron HCL 4 MG/2 ML VIAL IV PRN (19:00)
--- NOTE | 2024-04-07 19:13 | EKG ---
[facility] [address] [place] [address] Signed Sinus tachycardia Minimal voltage criteria for LVH, may be normal variant ( Javier product ) Inferior infarct (cited on or before 07-APR-2024) Abnormal ECG When compared with ECG of 05-DEC-2023 07:46, Nonspecific T wave abnormality, worse in Inferior leads Confirmed by Arianna Fish MD () on 04/07/2024 7:13:38 PM Electronically Signed By: ARIANNA FISH MD 04/07/241912 PATIENT NAME: LUANNE TUTTLE PAUL Electrocardiogram DATE OF : 71 PHYSICIAN: ARIANNA FISH MD REPORT #: [id number] REPORT IS CONFIDENTIAL AND NOT TO BE RELEASED WITHOUT AUTHORIZATION
[2024-04-07 19:27] VITALS: BP 143/80
[2024-04-07 19:30] VITALS: BP 143/80
--- NOTE | 2024-04-07 19:30 | NUR ---
pt ARRIVED TO THE FLOOR VIA STRETCHER. pt ABLE TO TRANSFER TO THE BED BY SBA. pt ON 2LNC FOR COMFORT. EXPIRATORY WHEEZES IN LUNGS. pt DENIES ANY OTHER NEEDS AT THIS TIME. WATER GIVEN AND TEA GIVEN. ASSESSMENT DONE. IV FLUSHED, WNL. IVF INFUSING PER ORDER, SEE MAR. CALL LIGHT WITHIN REACH. BED ALARM ON.
--- NOTE | 2024-04-07 19:55 | NUR ---
BED ALARMING. PATIENT GOT UP TO USE THE BATHROOM. SBA. PATIENT VOIDED 200ML YELLOW URINE. PULL UPS PROVIDED. PERSONAL PANTS AND UNDER WEAR OFF AND PLACED IN A PERSONAL GREEN BAG. PATIENT IS BACK IN BED. PRIMARY RN AND METAL MOLD DRESSER WERE IN THE ROOM.
--- NOTE | 2024-04-07 20:20 | NUR ---
PATIENT ARRIVED TO THE FLOOR VIA STRETCHER. PATIENT ABLE TO SELF XFER FROM STRETCHER TO BED. PATIENT VITALS TAKEN AND RECORDED. PATIENTS ADMISSION COMPLETED. PATIENTS IV INFUSING PER ORDER. PATIENT DENIES ANY PAIN OR SOB. PATIENTS IV INFUSING PER ORDER. PATIENT DENIES ANY FURTHER NEEDS. PATIENTS BED ALARM PLACED ON FOR SAFETY. PRIMARY RN IN ROOM.
[2024-04-07 20:29] LABS: INFLUENZA B NAA NEGATIVE (NEGATIVE); RESPIRATORY SYNCYTIAL VIR NAA NEGATIVE (NEGATIVE)
[2024-04-07] MEDS ORDERED: PANTOPRAZOLE SODIUM 40 MG/10 ML VIAL IV SCH (21:00)
[2024-04-07] MEDS ORDERED: PREGABALIN 75 MG CAP PO SCH (21:09)
[2024-04-07] MEDS ORDERED: DULOXETINE HCL 30 MG CAP PO SCH (21:10)
[2024-04-07] MEDS ORDERED: POTASSIUM CHLORIDE 10 MEQ TABCR PO ONE (21:15)
--- NOTE | 2024-04-07 21:42 | NUR ---
PATIENTS PM MEDS GIVEN PER ORDER. PATIENT PLACED ON CPOX PER ORDER. PATIENT REMAINS ON 2L VIA NC. PATIENT DENIES ANY PAIN OR SOB. PATIENT DENIES ANY NEEDS AT THIS TIME. CALL LIGHT IN REACH. BED ALARM ON FOR SAFETY. IV INFUSING PER ORDER.
--- NOTE | 2024-04-07 22:30 | NUR ---
IN pt RM TO CHECK ON pt. pt C/O 03/22 PAIN AND COUGHING. PRN MEDS ADMINISTERED. pt DENIES ANY OTHER NEEDS AT THIS TIME. CALL LIGHT WITHIN REACH.
[2024-04-08] VITALS (9 sets, daily range): BP systolic 127–149; BP diastolic 71–90
--- NOTE | 2024-04-08 00:05 | NUR ---
IN RM TO CHECK ON pt. pt REQUESTS TO STAND AT BED SIDE BECAUSE HER LEGS ARE GETTING SORE. THIS RN ASSISTED pt. SBA. pt BACK TO BED. NO OTHER NEEDS AT THIS TIME. CALL LIGHT WITHIN REACH.
--- NOTE | 2024-04-08 01:50 | NUR ---
IN RM TO CHECK ON pt. pt SATTING AT 90% ON 3LNC. pt DENIES ANY NEEDS AT THIS TIME. CALL LIGHT WITHIN REACH.
--- NOTE | 2024-04-08 03:41 | NUR ---
pt RESTING IN THE BED WITH EYES CLOSED. pt SATTING AT 90% ON 3LNC. CALL LIGHT WITHIN REACH.
--- NOTE | 2024-04-08 04:16 | NUR ---
used call light, up to BRP, voided large amount of clear yellow urine. Does own moiz care. O2 in place, CPOX desatted to 86-87% on return, SOB, tacheipneic, audible wheezing present. Back to bed. Warm blanket on requests. Bed alrm on. Primary RN notified
[2024-04-08 05:28] LABS: BASOPHILS 0.1 % (0-2); HEMATOCRIT 34.8 % (35.0-50.0); HEMOGLOBIN 11.7 g/dL (12.0-18.0); MCH 30.9 (27-36); MCHC 33.6 g/dl (30-36); MONOCYTES 6.3 % (0-12); NEUTROPHILS 68.6 % (39-80); PLATELET COUNT 165 K/uL (140-440); RBC 3.78 M/ul (4.3-5.7); RDW 14.5 (10.5-15.0)
[2024-04-08 05:43] LABS: ALBUMIN 3.2 g/dL (3.4-5.0); ALBUMIN/GLOBULIN RATIO 0.74 (1.1-2.4); BILIRUBIN, TOTAL 0.3 ng/dL (0.2-1.0); BUN/CREATININE RATIO 11.94 (6.0-28.6); CALCIUM 8.5 mg/dL (8.5-10.1); CREATININE, SERUM 0.67 mg/dL (0.55-1.02); MAGNESIUM 1.9 mg/dL (1.8-2.4); PHOSPHORUS, INORGANIC 3.3 mg/dL (2.5-4.9); PROTEIN, TOTAL 7.5 g/dL (6.4-8.2)
--- NOTE | 2024-04-08 07:25 | NUR ---
REPORT FROM BACK FACER.
--- NOTE | 2024-04-08 07:59 | NUR ---
PATIENT IN BED AT THIS TIME. CALL LIGHT WITHIN REACH, NO FURTHER NEEDS AT THIS TIME.
--- NOTE | 2024-04-08 08:21 | NUR ---
UR CLINICAL REVIEW: [facility] @ 1311 ORDER MATCHES REG NO AUTH REQUIRED FOR OBS STAY DISCHARGE TO HOME PENDING NEED FOR OXYGEN 04/09/24
--- NOTE | 2024-04-08 09:04 | NUR ---
PATIENT ASSESSMENT IS COMPLETE. PATIENT IS ON 3L OF O2 VIA NC. PATIENT IS REQUESTING NEB TREATMENTS, SHE DID NOT RECIEVE ANY LAST NIGHT. PATIENT IS REPORTING INCREASES SOB, CHEST PAIN 3-4/10 WITH COUGH. PATIENT REFUSES I/S OR PERCUSSIVE DEVICES. MORNING MEDICATIONS GIVEN. NO OTHER NEEDS AT THIS TIME.
[2024-04-08] MEDS ORDERED: ALBUTEROL SULFATE 0.083% 3 ML VIAL ONE (09:09)
[2024-04-08] MEDS ORDERED: IBUPROFEN800 MG PO (09:13)
[2024-04-08] MEDS ORDERED: FLUTICASONE PRO16 GM NAS (09:14)
[2024-04-08] MEDS ORDERED: ALBUTEROL SULFATE 0.083% 3 ML VIAL INH PRN (09:15)
--- NOTE | 2024-04-08 09:20 | NUR ---
Attempted to speak with pt. She states she can only speak with me "briefly. Pt lives in [facility] housing and uses [facility]. Pt denies having a phone. Pt does not use any DME and lives along. Pt plans on dc to home when cleared medically. Pt declines to answer further questions. Pt c/o of sob and I notified the smelter charger.
--- NOTE | 2024-04-08 10:17 | NUR ---
PT GOT UP TO USE THE RESTROOM. TOLD HER WE WERE GOING TO SET UP HER CHAIR SO SHE CAN SIT UP. PT SAID SHE WANTED TO GO BACK TO BED BECAUSE SHE DIDNT GET ENOUGH SLEEP LAST NIGHT. PT SITTING ON THE EDGE OF THE BED FOR A WHILE AND LAID BACK DOWN PT DIDNT NEED ANYTHING ELSE AND CALL LIGHT IS WHICH IN REACH.
--- NOTE | 2024-04-08 10:58 | NUR ---
PATIENT IS SLEEPING, NEW IVF BAG HANGING.
[2024-04-08] MEDS ORDERED: ZANAFLEX4 MG PO (11:57)
[2024-04-08] MEDS ORDERED: DULOXETINE HCL30 MG PO (11:57)
[2024-04-08] MEDS ORDERED: BANOPHEN25 MG PO (11:58)
--- NOTE | 2024-04-08 11:58 | NUR ---
MED REC COMPLETE
[2024-04-08] MEDS ORDERED: PHARMACY RENAL DOSE ADJUSTMENT 1 DOSE MISC PO SCH (12:00)
--- NOTE | 2024-04-08 12:24 | NUR ---
PATIENT USED CALL LIGHT TO LET ROLLER OPERATOR KNOW THAT SHE HAD TO USE THE RESTROOM. ROLLER OPERATOR CHARTED VOIDINGS. CALL LIGHT WITHIN REACH, NO FURTHER NEEDS AT THIS TIME.
--- NOTE | 2024-04-08 12:48 | NUR ---
PATIENT ATE 60% OF LUNCH. NEW PULSE OXIMETER PROBE PLACED ON RIGHT INDEX FINGER. O2 SATS ARE 95% ON 3L. DR. FISH IN TO SEE PATIENT. PATIENT IS WILLING TO TRY ACAPELLA AT THIS TIME. LUNG SOUNDS REMAIN COARSE AND WHEEZY.
--- NOTE | 2024-04-08 14:14 | NUR ---
PATIENT IN CHAIR AT THIS TIME. VITALS AND I&O'S CHARTED, CALL LIGHT WITHIN REACH, NO FURTHER NEEDS AT THIS TIME.
--- NOTE | 2024-04-08 14:17 | NUR ---
PATIENT UP TO CHAIR WITH SBA. PATIENT IS ON 2L AND IS 96%. LINENS CHANGED.
[2024-04-08] MEDS ORDERED: methylPREDNISolone SOD SUCC 125 MG/2 ML VIAL IV SCH (16:00)
--- NOTE | 2024-04-08 16:38 | NUR ---
PATIENT IN BED AT THIS TIME. WARM BLANKET PROVIDED BY DYNAMOMETER TESTER ENGINE. CALL LIGHT WITHIN REACH NO FURTHER NEEDS AT THIS TIME.
--- NOTE | 2024-04-08 18:07 | NUR ---
PATIENT GIVEN TESSALON PEARLS, NEW BAG OF IVF HANGING.
--- NOTE | 2024-04-08 19:36 | NUR ---
REPORT RECIEVED FROM DAY SHIFT RN. PATIENT RESTING IN BED, USING ACAPELLA. PATIENT DENIES NEEDS AT THIS TIME. CALL LIGHT IN REACH.
--- NOTE | 2024-04-08 20:52 | NUR ---
PATIENT SITTING UP IN BED WITH FAMILY IN ROOM. VS AND I&Os OBTAINED AND RECORDED. THIS RN ASKED PATIENT IF SHE WAS SHORT OF BREATH AND PATIENT STATES "I HAVE NOTHING WRONG WITH ME OTHER THAN I WANT YOU TO GET THIS STUFF OVER WITH SO I CAN JUST EAT MY FOOD! I AM STARVING!" SCHEDULED MEDICATIONS ADMINISTERED. ASSESSMENT COMPLETE. IV FLUSHED WNL. PATIENT HAS NO FURTHER NEEDS. CALL LIGHT IN REACH.
--- NOTE | 2024-04-08 22:33 | NUR ---
PATIENT SITTING UP IN BED TALKING TO VISITOR. PATIENT HAS NO CURRENT NEEDS. CALL LIGHT IN REACH.
[2024-04-09] VITALS (7 sets, daily range): BP systolic 124–139; BP diastolic 66–87
--- NOTE | 2024-04-09 00:17 | NUR ---
PATIENT RESTING IN BED WITH EYES CLOSED. RESPIRATIONS EVEN AND UNLABORED. CALL LIGHT IN REACH.
--- NOTE | 2024-04-09 02:01 | NUR ---
PATIENT RESTING IN BED WITH EYES CLOSED. RESPIRATIONS EVEN AND UNLABORED. CALL LIGHT IN REACH.
--- NOTE | 2024-04-09 02:09 | NUR ---
NEW BAG IV FLUID INFUSING PER ORDER. NO FURTHER NEEDS. CALL LIGHT IN REACH.
--- NOTE | 2024-04-09 04:04 | NUR ---
PATIENT RESTING IN BED WITH EYES CLOSED. RESPIRATIONS EVEN AND UNLABORED. CALL LIGHT IN REACH.
--- NOTE | 2024-04-09 05:04 | NUR ---
CALL LIGHT ANSWERED. PATIENT UP TO BATHROOM WITH MINIMAL SBA TO VOID. PATIENT BACK TO BED. VS AND I&Os OBTAINED AND RECORDED. PATIENT O2 TITRATED DOWN FROM 2L NC TO 1L NC. PATIENT DENIES SOB. PATIENT HAS NO FURTHER NEEDS AT THIS TIME. CALL LIGHT IN REACH.
[2024-04-09 05:30] LABS: HEMATOCRIT 34.7 % (35.0-50.0); HEMOGLOBIN 11.4 g/dL (12.0-18.0); MCHC 32.8 g/dl (30-36)
[2024-04-09 05:32] LABS: LYMPHOCYTES 32.3 % (24-44); MCH 30.5 (27-36); MONOCYTES 7.3 % (0-12); NEUTROPHILS 60.4 % (39-80); PLATELET COUNT 157 K/uL (140-440); RBC 3.73 M/ul (4.3-5.7); RDW 14.3 (10.5-15.0)
[2024-04-09 05:44] LABS: ALBUMIN/GLOBULIN RATIO 0.7 (1.1-2.4); ANION GAP 14.7 (7-21); BILIRUBIN, TOTAL 0.2 ng/dL (0.2-1.0); BUN/CREATININE RATIO 17.18 (6.0-28.6); CALCIUM 8.3 mg/dL (8.5-10.1); CREATININE, SERUM 0.64 mg/dL (0.55-1.02); POTASSIUM 3.7 mmol/L (3.5-5.1); PROTEIN, TOTAL 7.3 g/dL (6.4-8.2)
--- NOTE | 2024-04-09 07:24 | NUR ---
RECEIVED REPORT FROM SYLVIA MCKOY. PT RESTING IN BED WITH EYES CLOSED, BREATHING EVEN AND UNLABORED, O2 1L VIA NC IN PLACE. CALL LIGHT WITHIN REACH.
--- NOTE | 2024-04-09 07:42 | NUR ---
BED ALARMING, THIS RN TO BEDSIDE. PT RESTING IN BED WITH EYES CLOSED, BREATHING EVEN AND UNLABORED. BED ALARM RESET, CALL LIGHT WITHIN REACH.
--- NOTE | 2024-04-09 08:44 | NUR ---
PATIENT IN BED AT THIS TIME. PATIENT HAD TOLD HONING MACHINE OPERATOR THAT SHE WANTED A SHOWER AFTER BREAKFAST AND THEN WANTS TO GET IN HER CHAIR. CALL LIGHT WITHIN REACH, NO FURTHER NEEDS AT THIS TIME.
[2024-04-09] MEDS ORDERED: PANTOPRAZOLE SODIUM 40 MG TABEC PO SCH (09:00)
--- NOTE | 2024-04-09 09:30 | NUR ---
Spoke with Chloe. She is feeling much better today and plans on dc. She denies any needs. Daughter will drive her home.
--- NOTE | 2024-04-09 09:53 | NUR ---
PT NOT AVAILABLE FOR VISIT. PROVIDED PRAYER.
--- NOTE | 2024-04-09 10:12 | NUR ---
UR CLINICAL REVIEW: [facility] INPATIENT GUIDELINE FOR VIRAL ILLNESS. [facility] OBS TO INPT 04/08/24 @ 2103 REQUEST TO UPDATE REG SUBMITTED CLINICALS FAXED FOR AUTH REVIEW DISCHARGE HOME WHEN STABLE. ANTICIPATE DC IN 24-48 HRS 04/11/24
--- NOTE | 2024-04-09 10:21 | NUR ---
RA TRIAL DONE 91% AND AFTER VIBRATORY PEP AND DB+C 95%. CALL RT BEFORE PLACING O2 UNLESS IT IS EMERGENT.
--- NOTE | 2024-04-09 10:32 | NUR ---
PT UP TO CHAIR, DENIES SOB, NAUSEA, OR PAIN. PT ON RA. PT TAKES PO MEDICATION W/O DIFFICULTY. PT USES ACAPELLA DEVICE WHILE THIS RN IN ROOM. RT TO BEDSIDE TO DISCUSS PLAN. CPOX IN PLACE, O2 SATURATION >91% AT THIS TIME ON RA. PT REQUESTS MORE ICE WATER AND WARM BLANKET, GIVEN. PT DENIES FURTHER NEEDS AT THIS TIME, CALL LIGHT WITHIN REACH.
--- NOTE | 2024-04-09 12:58 | NUR ---
PT UP TO CHAIR, STATES NO NEEDS AT THIS TIME. O2 SATURATION 92% PER CPOX ON RA. PT DENIES SOB. CALL LIGHT WITHIN REACH.
--- NOTE | 2024-04-09 13:27 | NUR ---
PT UP TO CHAIR USING ACAPELLA DEVICE. O2 SATURATION AT 93% PER CPOX AT THIS TIME. PT STATES NO NEEDS AT THIS TIME, DENIES SOB. CALL LIGHT WITHIN REACH.
[2024-04-09] MEDS ORDERED: BENZONATATE100 MG PO (13:43)
[2024-04-09] MEDS ORDERED: MUCINEX600 MG PO (13:44)
[2024-04-09] MEDS ORDERED: PREDNISONE20 MG PO (13:45)
[2024-04-09] MEDS ORDERED: VENTOLIN HFA18 GM INH (13:48)
--- NOTE | 2024-04-09 14:08 | NUR ---
PATIENT IN CHAIR AT THIS TIME. SPRAY PAINTING MACHINE OPERATOR CHARTED VITALS AND I&0'S, SPRAY PAINTING MACHINE OPERATOR ALSO ASSISTED PATIENT TO BATHROOM WITH IV POLE. CALL LIGHT WITHIIN REACH, NO FURTHER NEEDS AT THIS TIME.
--- NOTE | 2024-04-09 14:35 | NUR ---
PT UP TO CHAIR, STATES SHE IS HAVING SORENESS/STIFFNESS ALL OVER, REQUESTS TYLENOL, GIVEN. IV DC'D WNL. VSS. PT DAUGHTER ARRIVES TO SHIRT MARKER PT. DC PACKET AND EDUCATION GIVEN, PT STATES ALL QUESTIONS HAVE BEEN ANSWERED. PT DENIES ANY FURTHER NEEDS AT THIS TIME, CALL LIGHT WITHIN REACH.
== END 2024-04-09 15:10 | disposition home or self-care (01) | DRG 189 ==
LOC: ED 13:09 → MS 13:11
PROVIDERS: Emergency Medicine; ADMIT Family Medicine; ATTEND Family Medicine
DX: J96.01 Acute respiratory failure with hypoxia (principal); K92.1 Melena; F17.210 Nicotine dependence, cigarettes, uncomplicated; Z71.6 Tobacco abuse counseling; Z98.51 Tubal ligation status; Z98.890 Other specified postprocedural states; Z88.0 Allergy status to penicillin; Z88.5 Allergy status to narcotic agent; Z88.8 Allergy status to other drugs, medicaments and biological substances; Z88.6 Allergy status to analgesic agent; Z88.1 Allergy status to other antibiotic agents; Z91.012 Allergy to eggs; Z91.011 Allergy to milk products
CPT/HCPCS: 36415; 71045; 71260; 80053; 83735; 84100; 84703; 85025; 87502; 93005; 93010; 94640; 94667; 94762; 96376; A9270; G0378; J2470; J2919; J7030; Q9967; U0002

== ENCOUNTER 2024-10-30 13:03 | Emergency (ER) | payer BC, OTHER ==
[~2024-10-30] VITALS: Ht 165.1 cm; Wt 108.8 kg
[~2024-10-30 13:03] MED LIST changes: +BANOPHEN25 MG PO; +BENZONATATE100 MG PO; +FLUTICASONE PRO16 GM NAS; +MUCINEX600 MG PO; +PREDNISONE20 MG PO; +VENTOLIN HFA18 GM INH; +ZANAFLEX4 MG PO
[2024-10-30 13:27] LABS: BASOPHILS 1.3 % (0-2); EOSINOPHILS 3.8 % (0-6); HEMATOCRIT 37.9 % (35.0-50.0); HEMOGLOBIN 12.9 g/dL (12.0-18.0); LYMPHOCYTES 41.3 % (24-44); MCH 31.5 (27-36); MCV 92.7 fl (81-99); MONOCYTES 5.1 % (0-12); NEUTROPHILS 48.5 % (39-80); PLATELET COUNT 244 K/uL (140-440); RBC 4.09 M/ul (4.3-5.7); RDW 14.6 (10.5-15.0)
[2024-10-30 13:45] LABS: ALBUMIN 3.9 g/dL (3.4-5.0); ALBUMIN/GLOBULIN RATIO 0.93 (1.1-2.4); ANION GAP 13.7 (7-21); BILIRUBIN, TOTAL 0.3 mg/dL (0.2-1.0); BUN/CREATININE RATIO 15.49 (6.0-28.6); CALCIUM 8.5 mg/dL (8.5-10.1); CREATININE, SERUM 0.71 mg/dL (0.55-1.02); POTASSIUM 3.7 mmol/L (3.5-5.1); PROTEIN, TOTAL 8.1 g/dL (6.4-8.2)
[2024-10-30 14:02] LABS: PROTIME 13.1 Sec (11.2-14.2)
[2024-10-30 14:04] LABS: PARTIAL THROMBOPLASTIN TIME 25.6 Sec (22.9-41.3)
[2024-10-30] MEDS ORDERED: SUMAtriptan succinate 6 MG/0.5 ML VIAL SUB-Q ONE (17:30)
[2024-10-30] MEDS ORDERED: IMITREX50 MG PO (17:46)
[2024-10-30 17:50] VITALS: BP 148/88
--- NOTE | 2024-10-31 11:50 | EKG ---
[facility] [address] [place] [address] Signed Normal sinus rhythm Inferior infarct , age undetermined Abnormal ECG When compared with ECG of 07-APR-2024 17:58, No significant change was found Confirmed by Baltazar Pedraza MD ([id number]) on 10/31/2024 11:49:56 AM Electronically Signed By: BALTAZAR PEDRAZA MD 10/31/24 1150 PATIENT NAME: LUANNE TUTTLE PAUL Electrocardiogram DATE OF : 71 PHYSICIAN: BALTAZAR PEDRAZA MD REPORT #: [id number] REPORT IS CONFIDENTIAL AND NOT TO BE RELEASED WITHOUT AUTHORIZATION
== END 2024-10-30 18:00 | disposition home or self-care (01) ==
LOC: ED 13:03
PROVIDERS: Emergency Medicine
DX: G43.909 Migraine, unspecified, not intractable, without status migrainosus (principal); F17.200 Nicotine dependence, unspecified, uncomplicated; Z88.0 Allergy status to penicillin; Z88.1 Allergy status to other antibiotic agents; Z88.8 Allergy status to other drugs, medicaments and biological substances; Z79.899 Other long term (current) drug therapy; Z79.52 Long term (current) use of systemic steroids
CPT/HCPCS: 36415; 70450; 70496; 70498; 71045; 80053; 85025; 85610; 85730; 93005; 93010; 99285-25; G0480; Q9967